=== PATIENT | female | born 1950 | race Caucasian/White ===

== ENCOUNTER 2017-12-24 21:27 | Emergency (ER) | payer MEDICARE, OTHER ==
[2017-12-24 21:42] VITALS: BP 152/75; PULSE 66; O2SAT 98
[2017-12-24] MEDS ORDERED: TORAdol 30 mg Injection IM ONE (21:49)
--- NOTE | 2017-12-24 21:51 | ERPHSYRPT ---
- History of Present Illness Time Seen by Provider: 12/24/17 21:49 Source: patient Exam Limitations: no limitations Patient Subjective Stated Complaint: FAll, Right ankle Pain. Triage Nursing Assessment: Pt presents to the ED with complaints of right ankle pain after she fell. Pt states she stepped off a brick ledge. Swelling noted to lateral portion of right ankle, abrasion noted to left foot and bridge of nose. No distress noted, skin pwd. Physician History: FAll, Right ankle Pain.just before arrival Pt presents to the ED with complaints of right ankle pain after she fell. Pt states she stepped off a brick ledge. Swelling noted to lateral portion of right ankle, abrasion noted to left foot and bridge of nose. Method of Injury: fell Occurred: just prior to arrival Quality: throbbing Severity of Pain-Max: moderate Severity of Pain-Current: moderate Lower Extremities Pain: ankle: right Modifying Factors: Improves With: nothing Associated Symptoms: unable to bear weight Allergies/Adverse Reactions: codeine Allergy (Unknown, Verified 12/24/17 21:43) Penicillins Allergy (Unknown, Verified 12/24/17 21:43) Home Medications: Lorazepam 0.5 mg [Ativan 0.5 MG] 0.5 mg PO Q6HPRN PRN 12/24/17 [History] Sertraline HCl [Sertraline HCl] 50 mg PO DAILY 12/24/17 [History] Hx Tetanus, Diphtheria Vaccination/Date Given: No Hx Influenza Vaccination/Date Given: No Hx Pneumococcal Vaccination/Date Given: Yes Immunizations Up to Date: No - Review of Systems Constitutional: No Symptoms Eyes: No Symptoms Ears, Nose, & Throat: No Symptoms Respiratory: No Symptoms Cardiac: No Symptoms Abdominal/Gastrointestinal: No Symptoms Genitourinary Symptoms: No Symptoms Musculoskeletal: Deformity (right ankle), Joint Pain, Joint Swelling - Past Medical History Neurological History: No Pertinent History Cardiac History: No Pertinent History Respiratory History: No Pertinent History Endocrine Medical History: No Pertinent History Musculoskeletal History: Osteoarthritis Other Medical History: Breast CA - 2 lumpectomies left with radiation - completed treatment 2012. Still taking Exemestane - Social History Smoking Status: Never smoker Exposure to second hand smoke: No Patient Lives Alone: No - Female History Hx Now: No - Nursing Vital Signs Nursing Vital Signs: Initial Vital Signs Temperature 98.3 F 12/24/17 21:36 Pulse Rate 66 12/24/17 21:36 Respiratory Rate 16 12/24/17 21:36 Blood Pressure 152/75 12/24/17 21:36 O2 Sat by Pulse Oximetry 98 12/24/17 21:36 Pain Scale Pain Intensity 8 - Physical Exam General Appearance: no apparent distress Ankle Exam: right ankle: limited range of motion, soft tissue tenderness, swelling SpO2: 98 Oxygen Delivery: Room Air - Course Nursing assessment & vital signs reviewed: Yes - Radiology Exams Ankle X-ray Interpretation: Reviewed by me, No Fracture, No Subluxation Ordered Tests: Active Orders 24 hr Category Date Time Status ANKLE (3 VIEWS) Stat Exams 12/24/17 Ordered Medication Summary Discontinued Medications Generic Name Dose Route Start Last Admin Trade Name Juan PRN Reason Stop Dose Admin Ketorolac Tromethamine 60 mg 12/24/17 21:49 12/24/17 22:09 Toradol 30 Mg Injection IM 12/24/17 21:50 60 mg STAT ONE Administration Ketorolac Tromethamine Confirm 12/24/17 22:08 Toradol 30 Mg Injection Administered 12/24/17 22:09 Dose 60 mg .ROUTE .STK-MED ONE - Progress Progress: unchanged, pain not gone completely Counseled pt/family regarding: diagnosis, rad results - Departure Time of Disposition: 22:09 Departure Disposition: Home Clinical Impression: High ankle sprain of right lower extremity Qualifiers: Encounter type: initial encounter Qualified Code(s): S93.431A - Sprain of tibiofibular ligament of right ankle, initial encounter Condition: Stable Critical Care Time: No Referrals: ISSAC EVERETT MD [Primary Care Provider] - Instructions: Ankle Sprain, Ankle Sprain (DC) Additional Instructions: SPRAINS/STRAINS/CONTUSIONS 1. Rest the affected area as much as possible for the next few days. 2. Apply ice to the affected area for 20-30 minutes at a time, several times a day. 3. If you receive an elastic wrap, wear it only while awake for comfort and support. Re-wrap the elastic wrap if it feels too tight or too loose. 4. If swelling is present, elevate the affected part above the level of the heart for at least 2 to 3 days. 5. Use splints, slings, or crutches as instructed. 6. Watch for severe swelling, coldness, numbness, and discoloration of the fingers and toes. See your family physician or return to the emergency department if any of these are noted. ABDULAZIZ GRECO was seen on 12/24/17 n the Emergency Room. At that time you were treated for an emergent condition, during your visit Laboratory, Radiology and/or other procedures may have been ordered. It is very important that you follow-up with your Primary Care Physician ISSAC EVERETT within the next 24- 48 hours to review your Emergency Room visit and the final results of testing that was ordered. Some test results such as Urine Cultures, Blood Cultures, and other cultures if ordered will not be finalized for 24-48 hours. If you do not have a Primary Care Provider please call the medical records department at [phone] to obtain a copy of your results or you may sign into our patient portal to obtain these results by visiting us @ [email or web address] and completing the following steps: 1. Click on the Patient Portal link 2. Click the Patient Self Enrollment Link to complete the enrollment form and entering your 3. Once the enrollment form is completed you will receive an email with a temporary ID and password at the email address you provided. 4. Next choose a user name and password. Your user name must be at least 4 characters long and your password must be at least 4 characters long. 5. Choose a security question from the list and provide your answer to the question. If you already have signed into the Health Portal you may access your Health Care Information 19/04 by the following steps: 1. Login to our website @ [email or web address] 2. Enter your original user name and password. FAQS The [facility] Health Portal is an online tool that contains your Lab Results, Radiology Reports, Visit History, Discharge Instructions and Health Summary Lab and Radiology Results will not be available for 72 hours on the portal. The Portal is a secure site, passwords are encryted and URLs are re-written so they cannot be copied and pasted. You and authorized family members are the only ones who can access your Portal. Also there is a timeout feature that protects your information if you leave the Portal page open. If you have technical difficulty please use the Contact Us link on the page this will allow you to submit any questions you have regarding the Portal or you may contact the Medical Record Department at [phone]. Prescriptions: Naproxen 375 mg [Naprosyn 375 mg] 375 mg PO Q8H #30 tablet
[2017-12-24] MEDS ORDERED: TORAdol 30 mg Injection ONE (22:08)
--- NOTE | 2017-12-25 10:17 | XRAY ---
Indication: Pain following fall. Comparison: None 3 views of the right ankle demonstrates intact ankle mortise with minimally displaced acute fracture involving the tip of the lateral malleolus with soft tissue swelling. Elsewhere small plantar heel spur. Comment: Fracture not reported. Telephone report given to Dr. Barfield in the ER at 1012 hrs. on December 25, 2017.
== END 2017-12-24 22:27 | disposition home or self-care (01) ==
LOC: ED 21:27
DX: S93.431A Sprain of tibiofibular ligament of right ankle, initial encounter (principal); M25.471 Effusion, right ankle; S90.812A Abrasion, left foot, initial encounter; S00.31XA Abrasion of nose, initial encounter; W17.89XA Other fall from one level to another, initial encounter; M19.90 Unspecified osteoarthritis, unspecified site; C80.1 Malignant (primary) neoplasm, unspecified
CPT/HCPCS: 73610; 96372; 99284; J1885; L4386

== ENCOUNTER 2018-03-09 11:57 | Observation (INO) | payer MEDICARE, OTHER ==
[2018-03-09 12:55] LABS: Hematocrit 45.1 % (35-47); Hemoglobin 14.7 gm/dl (12.0-16.0); Mean Cell Volume 94.9 fl (78-100); Mean Corpuscular Hemoglobin 30.9 pg (26-32); Mean Corpuscular Hgb Concent. 32.6 g/dl (32-36); Platelet Count 163 K/mm3 (150-450); Red Blood Count 4.75 M/mm3 (4.1-5.4); Red Cell Distribution Width 14.4 % (11.5-14.0); White Blood Count 6.5 K/mm3 (4.0-10.5)
[2018-03-09 13:10] LABS: ALBUMIN 4.2 g/dL (3.5-5.0); ALKALINE PHOSPHATASE 63 U/L (38-126); ANION GAP 13.5 MEQ/L (5-15); BLOOD UREA NITROGEN 16 mg/dL (7-17); CHLORIDE 103 mmol/L (98-107); Calcium 9.7 mg/dL (8.4-10.2); Carbon Dioxide 32 mmol/L (22-30); Creatinine 1 0.94 mg/dL (0.52-1.04); Glucose 93 mg/dL (74-106); Potassium 4.3 mmol/L (3.5-5.1); SGOT/AST 25 U/L (14-36); SGPT/ALT 25 U/L (0-35); SODIUM 144 mmol/L (137-145); Total Protein 7.1 g/dL (6.3-8.2)
[2018-03-09] MEDS: FLAGYL 500 MG IVPB 500 MG/100 ML BAG IV SCH ×2 (13:49→21:31)
[2018-03-09] MEDS: Sodium Chloride 0.9% 1000 ML 1,000 ML IV SCH (13:49)
[2018-03-09] MEDS: Ativan 0.5 MG PO PRN (14:00)
[2018-03-09] MEDS: Zofran 4 MG/2 ML VIAL IV PRN (14:00)
[2018-03-09 14:30] LABS: Appearance CLEAR (CLEAR); Bilirubin NEGATIVE (NEGATIVE); Blood NEGATIVE Ery/ul (0-5); Glucose NEGATIVE (NEGATIVE); Ketones NEGATIVE (NEGATIVE); Leukocyte Esterase NEGATIVE (NEGATIVE); Nitrite NEGATIVE (NEGATIVE); Protein,Urine Dip NEGATIVE (Negative); Specific Gravity 1.005 (1.005-1.025); Urobilinogen NORMAL mg/dL (0-1)
[2018-03-09] MEDS ORDERED: Ativan 2 MG/1 ML VIAL IV PRN (15:08)
--- NOTE | 2018-03-09 16:38 | XRAY ---
Indication: Left pelvic pain. Nausea and vomiting. History diverticulitis. Multiple contiguous axial images obtained through the abdomen and pelvis prior to and following 80 cc Isovue 370 contrast. Oral contrast also used. Comparison: Noncontrast exam August 26, 2017. Lung bases remain clear. Heart is not enlarged. Stable small hiatal hernia. Noncontrasted images again demonstrates scattered calcified splenic granulomas and stable nonobstructing renal micro-calculus in each kidney. No new pathologic visceral calcification/calculi. Contrasted stomach and bowel loops appear nonobstructed. Normal appendix. Stable mild descending/sigmoid colonic diverticulosis without diverticulitis. No free fluid/air. Postcontrast images demonstrates normal vessel enhancement and renal excretion. Stable hepatic cysts and bilateral renal cysts. Remaining liver, gallbladder, pancreas, spleen, adrenal glands, kidneys, ureters, bladder, uterus, and aorta appear unremarkable. No pathologic retroperitoneal lymphadenopathy. Osseous structures intact again with lumbar degenerative changes and mild dextroscoliosis. No ventral or inguinal hernias. Impression: 1. Stable nonobstructing bilateral renal micro-calculi, small hiatal hernia, hepatic/renal cysts, and colonic diverticulosis. 2. Remaining CT abdomen/pelvis with and without contrast exam is negative. CTDI 19.26
[2018-03-10] MEDS: Sodium Chloride 0.9% 1000 ML 1,000 ML IV SCH (05:19)
[2018-03-10] MEDS: FLAGYL 500 MG IVPB 500 MG/100 ML BAG IV SCH (05:19)
[2018-03-10] MEDS: Ativan 0.5 MG PO PRN (05:20)
[2018-03-10] MEDS: Zofran 4 MG/2 ML VIAL IV PRN (09:01)
[2018-03-10] MEDS ORDERED: TYLENOL EXTRA STRENGTH 500 MG PO PRN (09:08)
[2018-03-10 12:19] VITALS: BP 130/77; PULSE 61; O2SAT 97
--- NOTE | 2018-03-10 12:19 | PCM.HP.ADD ---
Addendum to History & Physical - History & Physical Addendum Addendum to History & Physical: This certifies that the History & Physical in the electronic chart reflects the current health status of the patient. If there are changes in the H&P these changes/exceptions are listed as follows.
--- NOTE | 2018-03-10 12:21 | PCM.DS ---
Discharge Summary Date of Admission: 03/09/18 12:12 Admitting Physician: ISSAC EVERETT Primary Care Provider: ISSAC EVERETT Allergies Allergies codeine Allergy (Unknown, Verified 12/24/17 21:43) Penicillins Allergy (Unknown, Verified 12/24/17 21:43) Hospital Summary - Hospital Course Hospital Course: Last Vital Signs Temp 97.5 F 03/10/18 12:00 Pulse 61 03/10/18 12:00 Resp 18 03/10/18 12:00 BP 130/77 03/10/18 12:00 Pulse Ox 97 03/10/18 12:00 Allergies codeine Allergy (Unknown, Verified 12/24/17 21:43) Penicillins Allergy (Unknown, Verified 12/24/17 21:43) Active Medications Acetaminophen (Tylenol Extra Strength 500 Mg) 1,000 mg PO Q4H PRN PRN PRN Reason: HEADACHE Stop: 04/09/18 09:07 Last Admin: 03/10/18 09:38 Dose: 1,000 mg Sodium Chloride (Sodium Chloride 0.9% 1000 Ml) 1,000 mls @ 75 mls/hr IV .[id number] LOLA Stop: 04/08/18 13:29 Last Admin: 03/10/18 05:19 Dose: 75 mls/hr Metronidazole (Flagyl 500 Mg Ivpb) 500 mg in 100 mls @ 200 mls/hr IV Q8HT LOLA Stop: 04/08/18 13:59 Last Admin: 03/10/18 05:19 Dose: 200 mls/hr Lorazepam (Ativan 0.5 Mg) 0.5 mg PO Q6HPRN PRN PRN Reason: ANXIETY Stop: 04/08/18 13:50 Last Admin: 03/10/18 05:20 Dose: 0.5 mg Lorazepam (Ativan 2 Mg/1 Ml Vial) 1 mg IV Q4H PRN PRN PRN Reason: ANXIETY/AGITATION Stop: 04/08/18 15:07 Last Admin: 03/09/18 15:22 Dose: 1 mg Ondansetron HCl (Zofran 4 Mg/2 Ml Vial) 4 mg IV Q6H PRN PRN Stop: 04/08/18 13:17 Last Admin: 03/10/18 09:01 Dose: 4 mg Intake & Output 03/10/18 03/11/18 11:59 11:59 Intake Total 712 Output Total 175 Balance 537 Weight 78 kg Orders 03/09/18 12:12 Place in Observation ROUTINE 03/09/18 13:18 Ondansetron HCl 4 mg/2 ml [Zofran 4 MG/2 ML VIAL] 4 mg IV Q6H PRN PRN 03/09/18 13:30 NaCl 0.9% 1000 ml [Sodium Chloride 0.9% 1000 ML] 1,000 ml IV 75 mls/hr 03/09/18 13:42 Nutritional Admission Screen once 03/09/18 13:51 Lorazepam 0.5 mg [Ativan 0.5 MG] 0.5 mg PO Q6HPRN PRN 03/09/18 14:00 Metronidazole 500 mg Premix [Flagyl 500 mg Ivpb] 500 mg in 100 ml IV Q8HT 03/09/18 15:08 Lorazepam 2 mg/1 ml [Ativan 2 MG/1 ML VIAL] 1 mg IV Q4H PRN PRN 03/09/18 Dinner Clear Liquid 03/10/18 09:08 Acetaminophen 500 mg [Tylenol Extra Strength 500 mg] 1,000 mg PO Q4H PRN PRN Lab Tests 03/09/18 03/09/18 03/09/18 12:52 12:52 14:15 WBC 6.5 RBC 4.75 Hgb 14.7 Hct 45.1 MCV 94.9 MCH 30.9 MCHC 32.6 RDW 14.4 H Plt Count 163 MPV 11.0 H Sodium 144 Potassium 4.3 Chloride 103 Carbon Dioxide 32 H Anion Gap 13.5 BUN 16 Creatinine 0.94 Estimated GFR > 60.0 Glucose 93 Calcium 9.7 Total Bilirubin 0.50 AST 25 ALT 25 Alkaline Phosphatase 63 Serum Total Protein 7.1 Albumin 4.2 Ur Collection Type VOID Urine Color YELLOW Urine Appearance CLEAR Urine pH 8.0 Ur Specific [place] 1.005 Urine Protein NEGATIVE Urine Ketones NEGATIVE Urine Blood NEGATIVE Urine Nitrite NEGATIVE Urine Bilirubin NEGATIVE Urine Urobilinogen NORMAL Ur Leukocyte Esterase NEGATIVE Urine Glucose NEGATIVE Specimen Received 03/09/18 1415 - Vitals & Intake/Output Vital Signs: Vital Signs Temperature 97.5 F 03/10/18 12:00 Pulse Rate 61 03/10/18 12:00 Respiratory Rate 18 03/10/18 12:00 Blood Pressure 130/77 03/10/18 12:00 O2 Sat by Pulse Oximetry 97 03/10/18 12:00 Intake & Output: Intake & Output 03/08/18 03/09/18 03/10/18 03/11/18 11:59 11:59 11:59 11:59 Intake Total 712 Output Total 175 Balance 537 Weight 78 kg - Lab Result Diagrams: 03/09/18 12:52 03/09/18 12:52 Lab Results-Last 24 Hrs: Lab Results-Last 24 Hours 03/09/18 03/09/18 03/09/18 Range/Units 12:52 12:52 14:15 WBC 6.5 (4.0-10.5) K/mm3 RBC 4.75 (4.1-5.4) M/mm3 Hgb 14.7 (12.0-16.0) gm/dl Hct 45.1 (35-47) % MCV 94.9 (78-100) fl MCH 30.9 (26-32) pg MCHC 32.6 (32-36) g/dl RDW 14.4 H (11.5-14.0) % Plt Count 163 (150-450) K/mm3 MPV 11.0 H (6-9.5) fl Sodium 144 (137-145) mmol/L Potassium 4.3 (3.5-5.1) mmol/L Chloride 103 (98-107) mmol/L Carbon Dioxide 32 H (22-30) mmol/L Anion Gap 13.5 (5-15) MEQ/L BUN 16 (7-17) mg/dL Creatinine 0.94 (0.52-1.04) mg/dL Estimated GFR > 60.0 ML/MIN Glucose 93 (74-106) mg/dL Calcium 9.7 (8.4-10.2) mg/dL Total Bilirubin 0.50 (0.2-1.3) mg/dL AST 25 (14-36) U/L ALT 25 (0-35) U/L Alkaline Phosphatase 63 (38-126) U/L Serum Total Protein 7.1 (6.3-8.2) g/dL Albumin 4.2 (3.5-5.0) g/dL Ur Collection Type VOID Urine Color YELLOW (YELLOW) Urine Appearance CLEAR (CLEAR) Urine pH 8.0 (5-6) Ur Specific [place] 1.005 (1.005-1.025) Urine Protein NEGATIVE (Negative) Urine Ketones NEGATIVE (NEGATIVE) Urine Blood NEGATIVE (0-5) Migue/ul Urine Nitrite NEGATIVE (NEGATIVE) Urine Bilirubin NEGATIVE (NEGATIVE) Urine Urobilinogen NORMAL (0-1) mg/dL Ur Leukocyte Esterase NEGATIVE (NEGATIVE) Urine Glucose NEGATIVE (NEGATIVE) mg/dL Specimen Received 03/09/18 1415 - Radiology Exams Ordered Rad Exams-Entire Visit: Radiology Procedures Category Date Time Status ABDOMEN AND PELVIS W&WO CONTRA [CT] Routine Exams 03/09/18 15:00 Completed Discharge Exam General Appearance: no apparent distress, alert Neurologic Exam: alert, oriented x 3, cooperative, normal mood/affect, nml cerebellar function, sensation nml, No motor deficits Skin Exam: normal color, warm, dry Eye Exam: PERRL, EOMI, eyes nml inspection Ears, Nose, Throat Exam: normal ENT inspection, pharynx normal, moist mucous membranes Neck Exam: normal inspection, non-tender, supple, full range of motion Respiratory Exam: normal breath sounds, lungs clear, No respiratory distress Cardiovascular Exam: regular rate/rhythm, normal heart sounds Gastrointestinal/Abdomen Exam: soft, No tenderness, No mass Extremity Exam: normal inspection, normal range of motion Back Exam: normal inspection, normal range of motion, No CVA tenderness, No vertebral tenderness Pelvic Exam: deferred Rectal Exam: deferred Final Diagnosis/Problem List - Final Discharge Diagnosis/Problem (1) Abdominal pain, acute, left lower quadrant Current Visit: Yes Status: Acute Assessment & Plan: Chief Complaint Diagnosis Diverticulitis Allergies Allergy/AdvReac Type Severity Reaction Status Date / Time codeine Allergy Unknown Verified 12/24/17 21:43 Penicillins Allergy Unknown Verified 12/24/17 21:43 Vital Signs (Last 24 hours) Temp Pulse Resp BP BP Pulse Ox 03/10/18 12:00 97.5 F 61 18 130/77 97 03/10/18 08:00 97.9 F 68 18 117/59 95 03/10/18 04:00 97.8 F 60 16 117/57 91 L 03/10/18 00:00 97.9 F 66 14 109/61 94 L 03/09/18 20:00 98 F 70 20 110/56 98 03/09/18 16:00 97.8 F 65 16 113/57 94 L 03/09/18 13:23 97.9 F 76 17 132/64 132/64 96 Current Medications Generic Name Dose Route Start Last Admin Trade Name Freq PRN Reason Stop Dose Admin Acetaminophen 1,000 mg 03/10/18 09:08 03/10/18 09:38 Tylenol Extra Strength 500 Mg PO 04/09/18 09:07 1,000 mg Q4H PRN PRN Administration HEADACHE Sodium Chloride 1,000 mls @ 75 mls/hr 03/09/18 13:30 03/10/18 05:19 Sodium Chloride 0.9% 1000 Ml IV 04/08/18 13:29 75 mls/hr .[id number] LOLA Administration Metronidazole 500 mg in 100 mls @ 200 mls/hr 03/09/18 14:00 03/10/18 05:19 Flagyl 500 Mg Ivpb IV 04/08/18 13:59 200 mls/hr Q8HT LOLA Administration Lorazepam 0.5 mg 03/09/18 13:51 03/10/18 05:20 Ativan 0.5 Mg PO 04/08/18 13:50 0.5 mg Q6HPRN PRN Administration ANXIETY Lorazepam 1 mg 03/09/18 15:08 03/09/18 15:22 Ativan 2 Mg/1 Ml Vial IV 04/08/18 15:07 1 mg Q4H PRN PRN Administration ANXIETY/AGITATION Ondansetron HCl 4 mg 03/09/18 13:18 03/10/18 09:01 Zofran 4 Mg/2 Ml Vial IV 04/08/18 13:17 4 mg Q6H PRN PRN Administration Intake & Output (Last 24 hours) 03/08/18 03/09/18 03/10/18 03/11/18 11:59 11:59 11:59 11:59 Intake Total 712 Output Total 175 Balance 537 Weight 78 kg Laboratory Results (Last 24 hours) 03/09/18 03/09/18 03/09/18 14:15 12:52 12:52 WBC 6.5 RBC 4.75 Hgb 14.7 Hct 45.1 MCV 94.9 MCH 30.9 MCHC 32.6 RDW 14.4 H Plt Count 163 MPV 11.0 H Sodium 144 Potassium 4.3 Chloride 103 Carbon Dioxide 32 H Anion Gap 13.5 BUN 16 Creatinine 0.94 Estimated GFR > 60.0 Glucose 93 Calcium 9.7 Total Bilirubin 0.50 AST 25 ALT 25 Alkaline Phosphatase 63 Serum Total Protein 7.1 Albumin 4.2 Ur Collection Type VOID Urine Color YELLOW Urine Appearance CLEAR Urine pH 8.0 Ur Specific [place] 1.005 Urine Protein NEGATIVE Urine Ketones NEGATIVE Urine Blood NEGATIVE Urine Nitrite NEGATIVE Urine Bilirubin NEGATIVE Urine Urobilinogen NORMAL Ur Leukocyte Esterase NEGATIVE Urine Glucose NEGATIVE Specimen Received 03/09/18 1415 Orders (Last 24 hours) Category Date Time Status Place in Observation ROUTINE Care 03/09/18 12:12 Active Clear Liquid Diet 03/09/18 Dinner Active NPO Diet 03/09/18 12:36 Completed Nutritional Admission Screen once Diet 03/09/18 13:42 Active ABDOMEN AND PELVIS W&WO CONTRA [CT] Routine Exams 03/09/18 15:00 Completed CBC Urgent Lab 03/09/18 12:52 Completed CMP Urgent Lab 03/09/18 12:52 Completed UA Urgent Lab 03/09/18 14:15 Completed Acetaminophen 500 mg [Tylenol Extra Strength 500 mg* Med 03/10/18 09:08 Active ] 1,000 mg PO Q4H PRN PRN Lorazepam 0.5 mg [Ativan 0.5 MG] Med 03/09/18 13:51 Active 0.5 mg PO Q6HPRN PRN Lorazepam 2 mg/1 ml [Ativan 2 MG/1 ML VIAL] Med 03/09/18 15:08 Active 1 mg IV Q4H PRN PRN Metronidazole 500 mg Premix [Flagyl 500 mg Ivpb] Med 03/09/18 14:00 Active 500 mg in 100 ml IV Q8HT NaCl 0.9% 1000 ml [Sodium Chloride 0.9% 1000 ML] 1,000 Med 03/09/18 13:30 Active ml IV 75 mls/hr Ondansetron HCl 4 mg/2 ml [Zofran 4 MG/2 ML VIAL] Med 03/09/18 13:18 Active 4 mg IV Q6H PRN PRN Patient Care Notes (Last 24 hours) 03/10/18 09:30 (created 03/10/18 10:32) Nursing Note by Jayleen Martin No further c/o nausea at this time. Initialized on 03/10/18 10:32 - END OF NOTE 03/09/18 16:00 Nursing Note by Jayleen Martin Pt returned form radiology;tesst completed. Pt calm and able to smile when spoken to. Initialized on 03/09/18 16:00 - END OF NOTE 03/09/18 15:54 Nursing Note by Jayleen Martin Pt in radiology obtaining ordered CT. Pt's spouse went with her. Initialized on 03/09/18 15:54 - END OF NOTE 03/09/18 15:09 Nursing Note by Jayleen Martin Called Dr Everett concerning pt's high anxiety regarding her CT scan. pt went down for CT to radiology and refused to have it done. Addendum entered by Jayleen Martin 03/09/18 15:10: New order received. Initialized on 03/09/18 15:09 - END OF NOTE 03/09/18 14:40 Nursing Note by Jayleen Martin Pt continue to be tearful. Unable to complete recommended amount of oral contrast d/t nausea. Pt keeps stating "the only thing I can keep down are the large pretzels'. Addendum entered by Jayleen Martin 03/09/18 14:42: Called the radiology department to let them know she is unable to finish the oral contrast. Initialized on 03/09/18 14:40 - END OF NOTE 03/09/18 13:15 Nursing Note by Jayleen Martin Called Dr Everett concerning pt's home med list; new order received. Initialized on 03/09/18 13:15 - END OF NOTE (2) Hx of breast cancer Current Visit: Yes Status: Chronic - Discharge Discharge Date: 03/10/18 Disposition: Home, Self-Care Condition: Stable Prescriptions: Continue Lorazepam 0.5 mg [Ativan 0.5 MG] 0.5 mg PO Q6HPRN PRN PRN Reason: Anxiety Follow up with: ISSAC EVERETT MD [Primary Care Provider] - 1 Week
== END 2018-03-10 13:10 | disposition home or self-care (01) ==
LOC: MED SURG 12:12
PROVIDERS: ADMIT General Practice; ATTEND General Practice
DX: R10.32 Left lower quadrant pain (principal); K57.92 Diverticulitis of intestine, part unspecified, without perforation or abscess without bleeding; Z85.3 Personal history of malignant neoplasm of breast
CPT/HCPCS: 36415; 74178; 80053; 81002; 85027; G0378; J2060; J2405; A9270-GY

== ENCOUNTER 2018-05-16 15:46 | Observation (INO) | payer MEDICARE, OTHER ==
[2018-05-16] MEDS ORDERED: Sodium Chloride 0.9% 1000 ML 1,000 ML IV STA (17:12)
[2018-05-16] MEDS: Zofran 4 MG/2 ML VIAL IV PRN (17:27)
[2018-05-16] MEDS: Sodium Chloride 0.9% 1000 ML 1,000 ML IV SCH (17:27)
[2018-05-16 19:17] LABS: Hematocrit 41.2 % (35-47); Hemoglobin 13.5 gm/dl (12.0-16.0); Mean Cell Volume 93.4 fl (78-100); Mean Corpuscular Hemoglobin 30.6 pg (26-32); Mean Corpuscular Hgb Concent. 32.8 g/dl (32-36); Mean Platelet Volume 11.1 fl (6-9.5); Platelet Count 155 K/mm3 (150-450); Red Blood Count 4.41 M/mm3 (4.1-5.4); Red Cell Distribution Width 14.5 % (11.5-14.0); White Blood Count 7.3 K/mm3 (4.0-10.5)
[2018-05-16 19:20] LABS: Appearance CLEAR (CLEAR)
[2018-05-16 19:22] LABS: Bilirubin NEGATIVE (NEGATIVE); Blood NEGATIVE Ery/ul (0-5); Glucose NEGATIVE (NEGATIVE); Ketones SMALL (NEGATIVE); Leukocyte Esterase 1+ (NEGATIVE); Nitrite NEGATIVE (NEGATIVE); Protein,Urine Dip NEGATIVE (Negative); Specific Gravity 1.005 (1.005-1.025); Urobilinogen NORMAL mg/dL (0-1)
[2018-05-16 19:37] LABS: WBC 0-2 /HPF (0-5)
[2018-05-16 19:38] LABS: Bacteria RARE /HPF (NEGATIVE); Epithelial Cells FEW /HPF (FEW)
[2018-05-16 20:10] LABS: ALBUMIN 3.8 g/dL (3.5-5.0); ALKALINE PHOSPHATASE 70 U/L (38-126); ANION GAP 11.5 MEQ/L (5-15); BLOOD UREA NITROGEN 16 mg/dL (7-17); CHLORIDE 108 mmol/L (98-107); Calcium 8.7 mg/dL (8.4-10.2); Carbon Dioxide 25 mmol/L (22-30); Creatinine 1 0.77 mg/dL (0.52-1.04); Glucose 88 mg/dL (74-106); Potassium 3.6 mmol/L (3.5-5.1); SGOT/AST 22 U/L (14-36); SGPT/ALT 21 U/L (0-35); SODIUM 141 mmol/L (137-145); Total Protein 6.4 g/dL (6.3-8.2)
[2018-05-17] MEDS ORDERED: TYLENOL 325 MG PO PRN (00:21)
[2018-05-17] MEDS: Sodium Chloride 0.9% 1000 ML 1,000 ML IV SCH (04:32)
[2018-05-17] MEDS: Zofran 4 MG/2 ML VIAL IV PRN (07:29)
[2018-05-17 11:40] VITALS: BP 109/53; PULSE 50; O2SAT 96
--- NOTE | 2018-05-17 11:46 | PCM.SSS ---
History of Present Illness - Chief Complaint Chief Complaint: nausea and vomiting for 2 days History of Present Illness: is a 68 year old female.came with c/o nausea and vomiting for 2 days - Review of Systems Constitutional: No Fever, No Chills Eyes: No Symptoms Ears, Nose, & Throat: No Symptoms Respiratory: No Cough, No Short Of Breath Cardiac: No Chest Pain, No Edema, No Syncope Abdominal/Gastrointestinal: Nausea, Vomiting, No Abdominal Pain, No Diarrhea Genitourinary Symptoms: No Dysuria Musculoskeletal: No Back Pain, No Neck Pain Skin: No Rash Neurological: No Dizziness, No Focal Weakness, No Sensory Changes Psychological: No Symptoms Endocrine: No Symptoms Hematologic/Lymphatic: No Symptoms Immunological/Allergic: No Symptoms Medications & Allergies Home Medications: Home Medication List No Reportable Medications [No Reported Medications] 05/16/18 [History Confirmed 05/16/18] Allergies/Adverse Reactions: Allergies Allergy/AdvReac Type Severity Reaction Status Date / Time codeine Allergy Unknown Verified 12/24/17 21:43 Penicillins Allergy Unknown Verified 12/24/17 21:43 - Past Medical History Neurological History: No Pertinent History ENT History: No Pertinent History Cardiac History: No Pertinent History Respiratory History: No Pertinent History Endocrine Medical History: No Pertinent History Musculoskelatal History: Fractures GI Medical History: Cirrhosis, Diverticulitis, Polyps History: No Pertinent History Pyscho-Social History: No Pertinent History Reproductive Disorders: Breast Cancer Comment: 01/24/18 Colonoscopy and they removed 6 polyps. Left foot fx this spring (2017) - Female History Are you now?: No - Past Surgical History Past Surgical History: Yes Neuro Surgical History: No Pertinent History Cardiac History: No Pertinent History Respiratory Surgery: No Pertinent History GI Surgical History: Hemorrhoidectomy Genitourinary Surgical Hx: No Pertinent History Musculskeletal Surgical Hx: No Pertinent History Female Surgical History: Lumpectomy - Social History Smoking Status: Never smoker Exposure to second hand smoke: No Alcohol: None Drug Use: none - Physical Exam Vital Signs: Vital Signs - 24 hr Temp Pulse Resp BP Pulse Ox 05/17/18 11:39 98.2 F 50 L 18 109/53 96 05/17/18 07:36 18 05/17/18 07:26 97.9 F 53 L 18 99/53 93 L 05/17/18 04:00 97.9 F 60 18 102/51 92 L 05/17/18 00:00 98.3 F 62 18 102/56 95 05/16/18 20:00 98.4 F 54 L 16 121/58 95 05/16/18 16:37 98.1 F 81 18 129/64 98 General Appearance: no apparent distress, alert Neurologic Exam: alert, oriented x 3, cooperative, normal mood/affect, nml cerebellar function, nml station & gait, sensation nml, No motor deficits Eye Exam: PERRL/EOMI, eyes nml inspection Ears, Nose, Throat Exam: normal ENT inspection, TMs normal, pharynx normal, moist mucous membranes Neck Exam: normal inspection, non-tender, supple, full range of motion Respiratory Exam: normal breath sounds, lungs clear, No respiratory distress Cardiovascular Exam: regular rate/rhythm, normal heart sounds, normal peripheral pulses Gastrointestinal/Abdomen Exam: soft, normal bowel sounds, No tenderness, No mass Back Exam: normal inspection, normal range of motion, No CVA tenderness, No vertebral tenderness Extremity Exam: normal inspection, normal range of motion, pelvis stable Skin Exam: normal color, warm, dry, No rash Lymphatic Exam: No adenopathy Results - Labs Lab/Micro Results: Lab Results-Last 24 Hours 05/16/18 05/16/18 05/16/18 Range/Units 19:00 19:11 19:11 WBC 7.3 (4.0-10.5) K/mm3 RBC 4.41 (4.1-5.4) M/mm3 Hgb 13.5 (12.0-16.0) gm/dl Hct 41.2 (35-47) % MCV 93.4 (78-100) fl MCH 30.6 (26-32) pg MCHC 32.8 (32-36) g/dl RDW 14.5 H (11.5-14.0) % Plt Count 155 (150-450) K/mm3 MPV 11.1 H (6-9.5) fl Sodium 141 (137-145) mmol/L Potassium 3.6 (3.5-5.1) mmol/L Chloride 108 H (98-107) mmol/L Carbon Dioxide 25 (22-30) mmol/L Anion Gap 11.5 (5-15) MEQ/L BUN 16 (7-17) mg/dL Creatinine 0.77 (0.52-1.04) mg/dL Estimated GFR > 60.0 ML/MIN Glucose 88 (74-106) mg/dL Calcium 8.7 (8.4-10.2) mg/dL Total Bilirubin 0.70 (0.2-1.3) mg/dL AST 22 (14-36) U/L ALT 21 (0-35) U/L Alkaline Phosphatase 70 (38-126) U/L Serum Total Protein 6.4 (6.3-8.2) g/dL Albumin 3.8 (3.5-5.0) g/dL Ur Collection Type CLEAN CATCH Urine Color YELLOW (YELLOW) Urine Appearance CLEAR (CLEAR) Urine pH 8.0 (5-6) Ur Specific [place] 1.005 (1.005-1.025) Urine Protein NEGATIVE (Negative) Urine Ketones SMALL (NEGATIVE) Urine Blood NEGATIVE (0-5) Migue/ul Urine Nitrite NEGATIVE (NEGATIVE) Urine Bilirubin NEGATIVE (NEGATIVE) Urine Urobilinogen NORMAL (0-1) mg/dL Ur Leukocyte Esterase 1+ (NEGATIVE) Urine Microscopic WBC 0-2 (0-5) /HPF Ur Epithelial Cells FEW (FEW) /HPF Urine Bacteria RARE (NEGATIVE) /HPF Urine Glucose NEGATIVE (NEGATIVE) mg/dL Specimen Received 05/16/18 1900 Assessment/Plan (1) Dehydration, moderate Current Visit: Yes Status: Acute Assessment & Plan: Chief Complaint Diagnosis N/V, dehydration Allergies Allergy/AdvReac Type Severity Reaction Status Date / Time codeine Allergy Unknown Verified 12/24/17 21:43 Penicillins Allergy Unknown Verified 12/24/17 21:43 Vital Signs (Last 24 hours) Temp Pulse Resp BP Pulse Ox 05/17/18 11:39 98.2 F 50 L 18 109/53 96 05/17/18 07:36 18 05/17/18 07:26 97.9 F 53 L 18 99/53 93 L 05/17/18 04:00 97.9 F 60 18 102/51 92 L 05/17/18 00:00 98.3 F 62 18 102/56 95 05/16/18 20:00 98.4 F 54 L 16 121/58 95 05/16/18 16:37 98.1 F 81 18 129/64 98 Home Medications Medication Instructions Recorded Confirmed Last Taken Type No Reportable Medications [No 05/16/18 05/16/18 Unknown History Reported Medications] Current Medications Generic Name Dose Route Start Last Admin Trade Name Juan PRN Reason Stop Dose Admin Acetaminophen 650 mg 05/17/18 00:21 05/17/18 00:25 Tylenol 325 Mg PO 06/16/18 00:20 650 mg Q4H PRN PRN Administration PAIN AND/OR FEVER Sodium Chloride 1,000 mls @ 100 mls/hr 05/16/18 17:30 05/17/18 04:32 Sodium Chloride 0.9% 1000 Ml IV 06/15/18 17:29 100 mls/hr .Q10H LOLA Administration Ondansetron HCl 4 mg 05/16/18 17:12 05/17/18 07:29 Zofran 4 Mg/2 Ml Vial IV 06/15/18 17:11 4 mg Q6H PRN PRN Administration NAUSEA/VOMITING Discontinued Medications Generic Name Dose Route Start Last Admin Trade Name Juan PRN Reason Stop Dose Admin Sodium Chloride 1,000 mls @ 999 mls/hr 05/16/18 17:12 05/16/18 17:27 Sodium Chloride 0.9% 1000 Ml IV 05/16/18 18:12 999 mls/hr .Q1H1M STA Administration Intake & Output (Last 24 hours) 05/14/18 05/15/18 05/16/18 05/17/18 11:59 11:59 11:59 11:59 Intake Total 620 Output Total 1625 Balance -1005 Weight 77.3 kg Laboratory Results (Last 24 hours) 05/16/18 05/16/18 05/16/18 19:11 19:11 19:00 WBC 7.3 RBC 4.41 Hgb 13.5 Hct 41.2 MCV 93.4 MCH 30.6 MCHC 32.8 RDW 14.5 H Plt Count 155 MPV 11.1 H Sodium 141 Potassium 3.6 Chloride 108 H Carbon Dioxide 25 Anion Gap 11.5 BUN 16 Creatinine 0.77 Estimated GFR > 60.0 Glucose 88 Calcium 8.7 Total Bilirubin 0.70 AST 22 ALT 21 Alkaline Phosphatase 70 Serum Total Protein 6.4 Albumin 3.8 Ur Collection Type CLEAN CATCH Urine Color YELLOW Urine Appearance CLEAR Urine pH 8.0 Ur Specific [place] 1.005 Urine Protein NEGATIVE Urine Ketones SMALL Urine Blood NEGATIVE Urine Nitrite NEGATIVE Urine Bilirubin NEGATIVE Urine Urobilinogen NORMAL Ur Leukocyte Esterase 1+ Urine Microscopic WBC 0-2 Ur Epithelial Cells FEW Urine Bacteria RARE Urine Glucose NEGATIVE Specimen Received 05/16/18 1900 Orders (Last 24 hours) Category Date Time Status Activity as Tolerated TOLERATED Activity 05/16/18 17:[address] in Observation ROUTINE Care 05/16/18 16:04 Active Regular Diet Diet 05/17/18 Breakfast Active CBC Routine Lab 05/16/18 19:11 Completed CMP Routine Lab 05/16/18 19:11 Completed UA W/ MICROSCOPIC Routine Lab 05/16/18 19:00 Completed Acetaminophen 325 mg [Tylenol 325 mg] Med 05/17/18 00:21 Active 650 mg PO Q4H PRN PRN NaCl 0.9% 1000 ml [Sodium Chloride 0.9% 1000 ML] 1,000 Med 05/16/18 17:30 Active ml IV 100 mls/hr NaCl 0.9% 1000 ml [Sodium Chloride 0.9% 1000 ML] 1,000 Med 05/16/18 17:12 Discontinued ml IV 999 mls/hr Ondansetron HCl 4 mg/2 ml [Zofran 4 MG/2 ML VIAL] Med 05/16/18 17:12 Active 4 mg IV Q6H PRN PRN Code(s): E86.0 - DEHYDRATION Hospital Summary - Hospital Course Hospital Course: Last Vital Signs Temp 98.2 F 05/17/18 11:39 Pulse 50 L 05/17/18 11:39 Resp 18 05/17/18 11:39 BP 109/53 05/17/18 11:39 Pulse Ox 96 05/17/18 11:39 Allergies codeine Allergy (Unknown, Verified 12/24/17 21:43) Penicillins Allergy (Unknown, Verified 12/24/17 21:43) Active Medications Acetaminophen (Tylenol 325 Mg) 650 mg PO Q4H PRN PRN PRN Reason: PAIN AND/OR FEVER Stop: 06/16/18 00:20 Last Admin: 05/17/18 00:25 Dose: 650 mg Sodium Chloride (Sodium Chloride 0.9% 1000 Ml) 1,000 mls @ 100 mls/hr IV .Q10H LOLA Stop: 06/15/18 17:29 Last Admin: 05/17/18 04:32 Dose: 100 mls/hr Ondansetron HCl (Zofran 4 Mg/2 Ml Vial) 4 mg IV Q6H PRN PRN PRN Reason: NAUSEA/VOMITING Stop: 06/15/18 17:11 Last Admin: 05/17/18 07:29 Dose: 4 mg Intake & Output 05/16/18 05/17/18 11:59 11:59 Intake Total 620 Output Total 1625 Balance -1005 Weight 77.3 kg Orders 05/16/18 16:04 Place in Observation ROUTINE 05/16/18 17:12 Activity as Tolerated TOLERATED Ondansetron HCl 4 mg/2 ml [Zofran 4 MG/2 ML VIAL] 4 mg IV Q6H PRN PRN 05/16/18 17:30 NaCl 0.9% 1000 ml [Sodium Chloride 0.9% 1000 ML] 1,000 ml IV 100 mls/hr 05/17/18 00:21 Acetaminophen 325 mg [Tylenol 325 mg] 650 mg PO Q4H PRN PRN 05/17/18 Breakfast Regular Diet Lab Tests 05/16/18 05/16/18 05/16/18 19:00 19:11 19:11 WBC 7.3 RBC 4.41 Hgb 13.5 Hct 41.2 MCV 93.4 MCH 30.6 MCHC 32.8 RDW 14.5 H Plt Count 155 MPV 11.1 H Sodium 141 Potassium 3.6 Chloride 108 H Carbon Dioxide 25 Anion Gap 11.5 BUN 16 Creatinine 0.77 Estimated GFR > 60.0 Glucose 88 Calcium 8.7 Total Bilirubin 0.70 AST 22 ALT 21 Alkaline Phosphatase 70 Serum Total Protein 6.4 Albumin 3.8 Ur Collection Type CLEAN CATCH Urine Color YELLOW Urine Appearance CLEAR Urine pH 8.0 Ur Specific [place] 1.005 Urine Protein NEGATIVE Urine Ketones SMALL Urine Blood NEGATIVE Urine Nitrite NEGATIVE Urine Bilirubin NEGATIVE Urine Urobilinogen NORMAL Ur Leukocyte Esterase 1+ Urine Microscopic WBC 0-2 Ur Epithelial Cells FEW Urine Bacteria RARE Urine Glucose NEGATIVE Specimen Received 05/16/18 1900 - Vitals & Intake/Output Vital Signs: Vital Signs Temperature 98.2 F 05/17/18 11:39 Pulse Rate 50 L 05/17/18 11:39 Respiratory Rate 18 05/17/18 11:39 Blood Pressure 109/53 05/17/18 11:39 O2 Sat by Pulse Oximetry 96 05/17/18 11:39 Intake & Output: Intake & Output 05/14/18 05/15/18 05/16/18 05/17/18 11:59 11:59 11:59 11:59 Intake Total 620 Output Total 1625 Balance -1005 Weight 77.3 kg - Lab Result Diagrams: 05/16/18 19:11 05/16/18 19:11 Lab Results-Last 24 Hrs: Lab Results-Last 24 Hours 05/16/18 05/16/18 05/16/18 Range/Units 19:00 19:11 19:11 WBC 7.3 (4.0-10.5) K/mm3 RBC 4.41 (4.1-5.4) M/mm3 Hgb 13.5 (12.0-16.0) gm/dl Hct 41.2 (35-47) % MCV 93.4 (78-100) fl MCH 30.6 (26-32) pg MCHC 32.8 (32-36) g/dl RDW 14.5 H (11.5-14.0) % Plt Count 155 (150-450) K/mm3 MPV 11.1 H (6-9.5) fl Sodium 141 (137-145) mmol/L Potassium 3.6 (3.5-5.1) mmol/L Chloride 108 H (98-107) mmol/L Carbon Dioxide 25 (22-30) mmol/L Anion Gap 11.5 (5-15) MEQ/L BUN 16 (7-17) mg/dL Creatinine 0.77 (0.52-1.04) mg/dL Estimated GFR > 60.0 ML/MIN Glucose 88 (74-106) mg/dL Calcium 8.7 (8.4-10.2) mg/dL Total Bilirubin 0.70 (0.2-1.3) mg/dL AST 22 (14-36) U/L ALT 21 (0-35) U/L Alkaline Phosphatase 70 (38-126) U/L Serum Total Protein 6.4 (6.3-8.2) g/dL Albumin 3.8 (3.5-5.0) g/dL Ur Collection Type CLEAN CATCH Urine Color YELLOW (YELLOW) Urine Appearance CLEAR (CLEAR) Urine pH 8.0 (5-6) Ur Specific [place] 1.005 (1.005-1.025) Urine Protein NEGATIVE (Negative) Urine Ketones SMALL (NEGATIVE) Urine Blood NEGATIVE (0-5) Migue/ul Urine Nitrite NEGATIVE (NEGATIVE) Urine Bilirubin NEGATIVE (NEGATIVE) Urine Urobilinogen NORMAL (0-1) mg/dL Ur Leukocyte Esterase 1+ (NEGATIVE) Urine Microscopic WBC 0-2 (0-5) /HPF Ur Epithelial Cells FEW (FEW) /HPF Urine Bacteria RARE (NEGATIVE) /HPF Urine Glucose NEGATIVE (NEGATIVE) mg/dL Specimen Received 05/16/18 1900 - Discharge Discharge Date: 05/17/18 Disposition: Home, Self-Care Condition: Stable Prescriptions: No Action No Reportable Medications [No Reported Medications] Instructions: Dehydration, Adult (DC), Nausea and Vomiting, Adult (DC) Follow up with: ISSAC EVERETT MD [Primary Care Provider] - 1 Week Forms: Discharge Instructions
== END 2018-05-17 12:00 | disposition home or self-care (01) ==
LOC: MED SURG 16:04
PROVIDERS: ADMIT General Practice; ATTEND General Practice
DX: E86.0 Dehydration (principal); K74.60 Unspecified cirrhosis of liver; Z85.3 Personal history of malignant neoplasm of breast; Z86.010 Personal history of colon polyps
CPT/HCPCS: 36415; 80053; 81000; 85027; G0378; J2405; A9270-GY

== ENCOUNTER 2022-04-08 08:53 | Emergency (ER) | payer MEDICARE, OTHER ==
--- NOTE | 2022-04-08 08:58 | ERPHSYRPT ---
- History of Present Illness Time Seen by Provider: 04/08/22 08:58 Source: patient Exam Limitations: no limitations Physician History: This is a 71-year-old white female patient of Dr. Everett has a history of chronic back pain, constipation, cirrhosis and diverticulitis and presents with significant back pain over the last week. Patient also states that she feels some pain in the right lower abdomen. Patient has significant anxiety issues. She did not fall or suffer any acute traumatic injury. She has no urinary tract infection symptoms. Timing/Duration: week(s), intermittent, worse Method of Injury: other (No fall or injury) Quality: aching Back Pain Location: lumbar spine Back Pain Radiation: buttocks Severity of Pain-Max: moderate Severity of Pain-Current: moderate Associated Symptoms: constipation, lower back pain, muscle spasms, No fever, No chills, No urinary incontinence, No loss of bowel control, No nausea, No vomiting, No problems urinating, No numbness in legs/feet, No sensory/motor loss Previous symptoms: same symptoms as today Allergies/Adverse Reactions: codeine Allergy (Unknown, Verified 04/08/22 09:31) Penicillins Allergy (Unknown, Verified 04/08/22 09:31) Home Medications: Atorvastatin Calcium [Lipitor 40Mg] 1 tab PO HS 04/08/22 [History] Hx Tetanus, Diphtheria Vaccination/Date Given: No Hx Influenza Vaccination/Date Given: No Hx Pneumococcal Vaccination/Date Given: Yes Travel Risk - International Travel Have you traveled outside of the country in past 3 weeks: No - Coronavirus Screening Are you exhibiting any of the following symptoms?: No Close contact with a COVID-19 positive Pt in past 14-21 Days: No - Review of Systems Constitutional: No Symptoms Eyes: No Symptoms Ears, Nose, & Throat: No Symptoms Respiratory: No Symptoms Cardiac: No Symptoms Abdominal/Gastrointestinal: Constipation Genitourinary Symptoms: No Symptoms Musculoskeletal: Back Pain Skin: No Symptoms Neurological: No Symptoms Psychological: No Symptoms Endocrine: No Symptoms Hematologic/Lymphatic: No Symptoms Immunological/Allergic: No Symptoms All Other Systems: Reviewed and Negative - Past Medical History Neurological History: No Pertinent History ENT History: No Pertinent History Cardiac History: No Pertinent History Respiratory History: No Pertinent History Endocrine Medical History: No Pertinent History Musculoskeletal History: Fractures GI Medical History: Cirrhosis, Diverticulitis, Polyps History: No Pertinent History Psycho-Social History: No Pertinent History Female Reproductive Disorders: Breast Cancer Other Medical History: 01/24/18 Colonoscopy and they removed 6 polyps. Left foot fx this spring (2017) - Past Surgical History Past Surgical History: Yes Neuro Surgical History: No Pertinent History Cardiac: No Pertinent History Respiratory: No Pertinent History Gastrointestinal: Hemorrhoidectomy Genitourinary: No Pertinent History Musculoskeletal: No Pertinent History Female Surgical History: Lumpectomy - Social History Smoking Status: Never smoker Exposure to second hand smoke: No Drug Use: none Patient Lives Alone: No - Nursing Vital Signs Nursing Vital Signs: Initial Vital Signs Temperature 97.5 F 04/08/22 09:32 Pulse Rate 97 H 04/08/22 09:32 Respiratory Rate 18 04/08/22 09:32 Blood Pressure 111/78 04/08/22 09:32 O2 Sat by Pulse Oximetry 97 04/08/22 09:32 Pain Scale Pain Intensity 8 - Physical Exam General Appearance: no apparent distress, alert, anxiety Eye Exam: PERRL/EOMI, eyes nml inspection Ears, Nose, Throat Exam: normal ENT inspection, moist mucous membranes Neck Exam: normal inspection, non-tender, supple, full range of motion Respiratory Exam: normal breath sounds, lungs clear, airway intact, No chest tenderness, No respiratory distress Cardiovascular Exam: regular rate/rhythm, normal heart sounds, normal peripheral pulses Gastrointestinal Exam: soft, normal bowel sounds, tenderness (Mild tenderness to palpation right lower abdomen), guarding, No rebound Pelvic Exam: not done Rectal Exam: not done Back Exam: normal inspection, normal range of motion, No CVA tenderness, No vertebral tenderness Extremity Exam: normal inspection, normal range of motion, pelvis stable Neurologic Exam: alert, oriented x 3, cooperative, 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 as tested, normal mood/affect, nml cerebellar function, nml station & gait, sensation nml Skin Exam: normal color, warm, dry Lymphatic Exam: No adenopathy SpO2 Interpretation: normal O2 Delivery: Room Air - Course Nursing assessment & vital signs reviewed: Yes Ordered Tests: Active Orders 24 hr Category Date Time Status ABDOMEN AND PELVIS W/0 CONTRAS [CT] Stat Exams 04/08/22 09:49 Completed Medication Summary Discontinued Medications Generic Name Dose Route Start Last Admin Trade Name Freq PRN Reason Stop Dose Admin Lorazepam 1 mg 04/08/22 10:14 04/08/22 10:34 Lorazepam 2 Mg/1 Ml 2 Mg Vial IM 04/08/22 10:15 1 mg STAT ONE Administration Lorazepam Confirm 04/08/22 10:34 Lorazepam 2 Mg/1 Ml 2 Mg Vial Administered 04/08/22 10:35 Dose 2 mg .ROUTE .STK-MED ONE - Progress Progress: improved, pain not gone completely, re-examined Progress Note: 04/08/22 12:10 CAT scan of the abdomen pelvis without contrast shows no acute abdominal aortic aneurysm. There is mild lower lumbar degenerative changes present. There is a normal appendix. There is no evidence of significant amount of colonic stool. 04/08/22 12:14 Patient states that she ordinarily does not take narcotic pain medicine. I did ask her how she knows she is allergic to codeine. She just recalled taking that 1 time in the past. I will write for muscle relaxant as well as for tramadol short-term for her pain control. Counseled pt/family regarding: diagnosis, need for follow-up, rad results - Departure Departure Disposition: Home Clinical Impression: Back pain Condition: Stable Critical Care Time: No Referrals: ISSAC EVERETT MD [Primary Care Provider] - Follow up/PCP as directed Additional Instructions: Drink plenty of fluids. Activity as tolerated. Take your medications as prescribed. Follow-up with your primary care physician for further management. Prescriptions: Orphenadrine Citrate 100 mg [Norflex 100 MG Tablet] 100 mg PO QAM #5 tab Tramadol HCl 50 mg [Ultram 50 mg] 50 mg PO BID PRN #10 tablet MDD 2 PRN Reason: Moderate To Severe Pain
[2022-04-08] MEDS ORDERED: Ativan 2 MG/1 ML VIAL IM ONE (10:14)
[2022-04-08] MEDS ORDERED: Ativan 2 MG/1 ML VIAL ONE (10:34)
--- NOTE | 2022-04-08 11:29 | XRAY ---
Indication: Low back pain 2 weeks. History diverticulitis and constipation. Multiple contiguous axial images obtained through the abdomen and pelvis without contrast. Comparison: March 09, 2018. Lung bases remain clear. Heart not enlarged. Stable small hiatal hernia. Noncontrasted stomach and bowel loops nonobstructed again with normal appendix. Again mild scattered descending/sigmoid diverticulosis without diverticulitis, hepatic cysts, bilateral renal cysts, and tiny splenic calcified granulomas. No free fluid/air. Remaining liver, gallbladder, pancreas, spleen, adrenal glands, kidneys, ureters, bladder, and uterus are unremarkable for noncontrast exam. Minimal distal aortic calcifications without AAA. Osseous structures intact again with mild osteopenia, mild lower lumbar degenerative changes, and mild dextrorotoscoliosis centered at L3. Impression: 1. Stable small hiatal hernia, colonic diverticulosis, hepatic/renal cysts, chronic bony findings, and old granulomatous disease. 2. Remaining CT abdomen/pelvis without contrast exam is again negative.
[2022-04-08] MEDS ORDERED: ULTRAM 50 MG PO ONE (12:19)
[2022-04-08] MEDS ORDERED: ULTRAM 50 MG ONE (12:23)
[2022-04-08 12:28] VITALS: BP 111/65; PULSE 84; O2SAT 95
== END 2022-04-08 12:31 | disposition home or self-care (01) ==
LOC: ED 08:53
DX: M54.50 Low back pain, unspecified (principal); R10.31 Right lower quadrant pain; Z79.891 Long term (current) use of opiate analgesic; Z79.899 Other long term (current) drug therapy
CPT/HCPCS: 74176; 96372; 99283; J2060; A9270-GY

== ENCOUNTER 2023-12-15 18:01 | Observation (INO) | payer MEDICARE, OTHER ==
[2023-12-15 19:52] LABS: INFLUENZA A NEGATIVE (NEGATIVE); INFLUENZA B NEGATIVE (NEGATIVE); RESPIRATORY SYNCTIAL VIRUS NEGATIVE (NEGATIVE); SARS-CoV-2 Xpert Express NEGATIVE (NEGATIVE)
--- NOTE | 2023-12-15 19:55 | ERPHSYRPT ---
- History of Present Illness Time Seen by Provider: 12/15/23 19:45 Source: patient Exam Limitations: no limitations Patient Subjective Stated Complaint: C/O cough X 2 days Triage Nursing Assessment: Patient brought back to ER by W/C. She is alert and oriented but anxious. Patient has a dry, forceful cough. It is non-productive at this time. Lungs clear upon auscultation but difficult to be sure due to patient coughing when attempting to deep breath. Skin is hot to touch. Face is flushed. Physician History: Patient is a 73-year-old female presents to our ED with her for evaluation of 2-day history of cough fever cold chills and bodyaches. Patient has a wet sounding cough but nonproductive. No obvious sick contacts. Patient reports she is otherwise healthy. No chest pain no nausea vomiting or diaphore sis. No rash. Symptoms are progressive symptoms are moderate in intensity. No specific worsening or improving factors. Patient voices no other complaints or concerns at this time. Portions of this note were created with voice recognition technology. There may be grammatical, spelling, punctuation or sound alike errors Timing/Duration: day(s) (2 days) Severity: moderate Modifying Factors: Improves With: nothing Associated Symptoms: fever Allergies/Adverse Reactions: codeine Allergy (Unknown, Verified 12/15/23 18:41) Penicillins Allergy (Unknown, Verified 12/15/23 18:41) Home Medications: Atorvastatin Calcium [Lipitor 40Mg] 1 tab PO HS 04/08/22 [History] Amoxicillin/Potassium Clav [Amox-Clav 875-125 mg Tablet] 1 tab PO BID 12/15/23 [History] Lutein [Natural Lutein] 1 cap PO DAILY 12/15/23 [History] Hx Tetanus, Diphtheria Vaccination/Date Given: Yes Hx Influenza Vaccination/Date Given: No Hx Pneumococcal Vaccination/Date Given: Yes Immunizations Up to Date: Yes Travel Risk - International Travel Have you traveled outside of the country in past 3 weeks: No - Emerging Infectious Disease Are you exhibiting symptoms associated with any current EIDs: Yes Symptoms: Cough: New Onset, Fever, Headaches/Body Aches/, Shortness of Breath - Review of Systems Constitutional: No Symptoms, No Fever, No Chills Eyes: No Symptoms Ears, Nose, & Throat: No Symptoms Respiratory: No Symptoms, No Cough, No Dyspnea Cardiac: No Symptoms, No Chest Pain, No Edema, No Syncope Abdominal/Gastrointestinal: No Symptoms, No Abdominal Pain, No Nausea, No Vomiting, No Diarrhea Genitourinary Symptoms: No Symptoms, No Dysuria Musculoskeletal: No Symptoms, No Back Pain, No Neck Pain Skin: No Symptoms, No Rash Neurological: No Symptoms, No Dizziness, No Focal Weakness, No Sensory Changes Psychological: No Symptoms Endocrine: No Symptoms Hematologic/Lymphatic: No Symptoms Immunological/Allergic: No Symptoms All Other Systems: Reviewed and Negative - Past Medical History Pertinent Past Medical History: Yes Neurological History: No Pertinent History ENT History: No Pertinent History Cardiac History: Arrhythmia, High Cholesterol Respiratory History: No Pertinent History Endocrine Medical History: No Pertinent History Musculoskeletal History: Fractures GI Medical History: Cirrhosis, Diverticulitis, Polyps History: No Pertinent History Psycho-Social History: No Pertinent History Female Reproductive Disorders: Breast Cancer Other Medical History: HX: BREAST CANCER WITH 2 LUMPECTOMY LEFT AND TREATED WITH RADIATION 2012, HX OF SVT BUT NO RECENT EPISODES, FX ANKLE (WORE BOOT) - Past Surgical History Past Surgical History: Yes Neuro Surgical History: No Pertinent History Cardiac: No Pertinent History Respiratory: No Pertinent History Gastrointestinal: Hemorrhoidectomy Genitourinary: No Pertinent History Musculoskeletal: No Pertinent History Female Surgical History: Lumpectomy - Social History Smoking Status: Never smoker Exposure to second hand smoke: No Drug Use: none Patient Lives Alone: No - Nursing Vital Signs Nursing Vital Signs: Initial Vital Signs Temperature 101 F 12/15/23 18:35 Pulse Rate 103 H 12/15/23 18:35 Respiratory Rate 30 H 12/15/23 18:35 Blood Pressure 120/74 12/15/23 18:35 O2 Sat by Pulse Oximetry 98 12/15/23 18:35 Pain Scale Pain Intensity 6 - Physical Exam General Appearance: no apparent distress, alert Eye Exam: PERRL/EOMI, eyes nml inspection Ears, Nose, Throat Exam: normal ENT inspection, TMs normal, pharynx normal, moist mucous membranes Neck Exam: normal inspection, non-tender, supple, full range of motion Respiratory Exam: normal breath sounds, lungs clear, airway intact, No respiratory distress Cardiovascular Exam: regular rate/rhythm, normal heart sounds, normal peripheral pulses Gastrointestinal/Abdomen Exam: soft, normal bowel sounds, No tenderness, No mass Back Exam: normal inspection, normal range of motion, No CVA tenderness, No vertebral tenderness Extremity Exam: normal inspection, normal range of motion, pelvis stable Neurologic Exam: alert, oriented x 3, cooperative, normal mood/affect, nml cerebellar function, nml station & gait, sensation nml, No motor deficits Skin Exam: normal color, warm, dry, No rash Lymphatic Exam: No adenopathy SpO2 Interpretation: normal SpO2: 97 O2 Delivery: Room Air - Course Nursing assessment & vital signs reviewed: Yes Ordered Tests: Active Orders 24 hr Category Date Time Status Customer Support Analyst STAT Care 12/15/23 19:52 Active IV Insertion STAT Care 12/15/23 19:52 Active Pulse Oximetry (ED) STAT Care 12/15/23 19:52 Active CHEST 1 VIEW (PORTABLE) Stat Exams 12/15/23 18:40 Taken BLOOD CULTURE Stat Lab 12/15/23 20:33 Received CBC W DIFF Stat Lab 12/15/23 19:05 Completed CMP Stat Lab 12/15/23 19:05 Completed Lactic Acid Stat Lab 12/15/23 19:52 Completed Lactic Acid Stat Lab 12/15/23 22:08 Completed UA W/RFX UR CULTURE Stat Lab 12/15/23 22:05 Completed Transfer Order Routine Transfer 12/16/23 Ordered Medication Summary Generic Name Dose Route Start Last Admin Trade Name Freq PRN Reason Stop Dose Admin Sodium Chloride 1,000 mls @ 100 mls/hr 12/15/23 20:00 12/15/23 20:30 Sodium Chloride 0.9% 1000 Ml IV 01/14/24 19:59 100 mls/hr .Q10H LOLA Administration Discontinued Medications Generic Name Dose Route Start Last Admin Trade Name Freq PRN Reason Stop Dose Admin Acetaminophen 975 mg 12/15/23 19:53 12/15/23 19:58 Acetaminophen 325 Mg Tablet PO 12/15/23 19:54 975 mg STAT STA Administration Acetaminophen Confirm 12/15/23 19:57 Acetaminophen 325 Mg Tablet Administered 12/15/23 19:58 Dose 975 mg .ROUTE .STK-MED ONE Ibuprofen 600 mg 12/15/23 19:53 12/15/23 19:58 Ibuprofen 600 Mg Tablet PO 12/15/23 19:54 600 mg STAT STA Administration Ibuprofen Confirm 12/15/23 19:56 Ibuprofen 600 Mg Tablet Administered 12/15/23 19:57 Dose 600 mg .ROUTE .STK-MED ONE Lab/Rad Data: Laboratory Result Diagrams 12/15/23 19:05 12/15/23 19:05 Laboratory Results 12/15/23 12/15/23 12/15/23 Range/Units 22:08 22:05 19:52 WBC (4.0-10.5) x10^3/uL RBC (4.1-5.4) x10^6/uL Hgb (12.0-16.0) g/dL Hct (35-47) % MCV (78-100) fL MCH (26-32) pg MCHC (32-36) g/dL RDW (11.5-14.0) % Plt Count (150-450) x10^3/uL MPV (7.5-11.0) fL Gran % (36.0-66.0) % Immature Gran % (Auto) (0.00-0.4) % Nucleat RBC Rel Count (0.00-0.1) % Eos # (Auto) (0-0.5) x10^3/uL Immature Gran # (Auto) (0.00-0.03) x10^3u/L Absolute Lymphs (auto) (1.0-4.6) x10^3/uL Absolute Monos (auto) (0.0-1.3) x10^3/uL Absolute Nucleated RBC (0.00-0.01) x10^3u/L Lymphocytes % (24.0-44.0) % Monocytes % (0.0-12.0) % Eosinophils % (0.00-5.0) % Basophils % (0.0-0.4) % Absolute Granulocytes (1.4-6.9) x10^3/uL Basophils # (0-0.4) x10^3/uL Sodium (135-145) mmol/L Potassium (3.5-5.1) mmol/L Chloride (98-107) mmol/L Carbon Dioxide (22-30) mmol/L Anion Gap (5-15) MEQ/L BUN (7-17) mg/dL Creatinine (0.52-1.04) mg/dL Estimated GFR ML/MIN Glucose (74-106) mg/dL Lactic Acid 1.0 1.9 (0.4-2.0) Calcium (8.4-10.2) mg/dL Total Bilirubin (0.2-1.3) mg/dL AST (14-36) U/L ALT (0-35) U/L Alkaline Phosphatase (38-126) U/L Serum Total Protein (6.3-8.2) g/dL Albumin (3.5-5.0) g/dL Urine Color Yellow (Yellow) Urine Appearance Clear (Clear) Urine pH 5.5 (4.6-8.0) Ur Specific [place] >=1.030 A (1.005-1.030) Urine Protein Negative (Negative) Urine Glucose (UA) Negative (Negative) mg/dL Urine Ketones 40 A (Negative) Urine Blood Negative (Negative) Urine Nitrite Negative (Negative) Urine Bilirubin Negative (Negative) Urine Urobilinogen 0.2 (0.2) mg/dL Ur Leukocyte Esterase Negative (Negative) U Hyaline Cast (Auto) NONE SEEN (0-2) /LPF Urine Microscopic RBC 3-5 (0-5) /HPF Urine Microscopic WBC 0-2 (0-5) /HPF Ur Epithelial Cells None Seen (None Seen) /HPF Urine Bacteria None Seen (None Seen) /HPF Urine Culture Reflexed NO (NO) Influenza Type A Ag (NEGATIVE) Influenza Type B Ag (NEGATIVE) RSV (PCR) (NEGATIVE) SARS-CoV-2 (PCR) (NEGATIVE) Slides for Path Review 12/15/23 12/15/23 12/15/23 Range/Units 19:05 19:05 19:05 WBC 6.3 (4.0-10.5) x10^3/uL RBC 4.33 (4.1-5.4) x10^6/uL Hgb 13.1 (12.0-16.0) g/dL Hct 40.4 (35-47) % MCV 93.3 (78-100) fL MCH 30.3 (26-32) pg MCHC 32.4 (32-36) g/dL RDW 14.4 H (11.5-14.0) % Plt Count 101 L (150-450) x10^3/uL MPV 10.7 (7.5-11.0) fL Gran % 71.6 H (36.0-66.0) % Immature Gran % (Auto) 0.3 (0.00-0.4) % Nucleat RBC Rel Count 0.0 (0.00-0.1) % Eos # (Auto) 0.11 (0-0.5) x10^3/uL Immature Gran # (Auto) 0.02 (0.00-0.03) x10^3u/L Absolute Lymphs (auto) 0.83 L (1.0-4.6) x10^3/uL Absolute Monos (auto) 0.81 (0.0-1.3) x10^3/uL Absolute Nucleated RBC 0.00 (0.00-0.01) x10^3u/L Lymphocytes % 13.2 L (24.0-44.0) % Monocytes % 12.9 H (0.0-12.0) % Eosinophils % 1.8 (0.00-5.0) % Basophils % 0.2 (0.0-0.4) % Absolute Granulocytes 4.49 (1.4-6.9) x10^3/uL Basophils # 0.01 (0-0.4) x10^3/uL Sodium 138 (135-145) mmol/L Potassium 4.0 (3.5-5.1) mmol/L Chloride 104 (98-107) mmol/L Carbon Dioxide 22 (22-30) mmol/L Anion Gap 15.0 (5-15) MEQ/L BUN 21 H (7-17) mg/dL Creatinine 1.00 (0.52-1.04) mg/dL Estimated GFR 59.1 ML/MIN Glucose 99 (74-106) mg/dL Lactic Acid (0.4-2.0) Calcium 9.3 (8.4-10.2) mg/dL Total Bilirubin 0.70 (0.2-1.3) mg/dL AST 42 H (14-36) U/L ALT 29 (0-35) U/L Alkaline Phosphatase 80 (38-126) U/L Serum Total Protein 7.4 (6.3-8.2) g/dL Albumin 4.2 (3.5-5.0) g/dL Urine Color (Yellow) Urine Appearance (Clear) Urine pH (4.6-8.0) Ur Specific [place] (1.005-1.030) Urine Protein (Negative) Urine Glucose (UA) (Negative) mg/dL Urine Ketones (Negative) Urine Blood (Negative) Urine Nitrite (Negative) Urine Bilirubin (Negative) Urine Urobilinogen (0.2) mg/dL Ur Leukocyte Esterase (Negative) U Hyaline Cast (Auto) (0-2) /LPF Urine Microscopic RBC (0-5) /HPF Urine Microscopic WBC (0-5) /HPF Ur Epithelial Cells (None Seen) /HPF Urine Bacteria (None Seen) /HPF Urine Culture Reflexed (NO) Influenza Type A Ag NEGATIVE (NEGATIVE) Influenza Type B Ag NEGATIVE (NEGATIVE) RSV (PCR) NEGATIVE (NEGATIVE) SARS-CoV-2 (PCR) NEGATIVE (NEGATIVE) Slides for Path Review YES - Progress Progress: improved Progress Note: 73-year-old female presents to our ED for evaluation of fever cough chills body aches decreased p.o. Physical exam reveals a ill-appearing female with a ongoing dry cough. Laboratory workup reveals a dehydration. Patient is RSV influenza COVID-negative. Patient states she feels very weak. In light of her dehydration and her age and her ongoing symptomology we will admit for dehydration and generalized weakness. Case discussed with Dr. Gonzalez who accepts admission to observation. Plan of care discussed with patient. Patient agrees to admission to [facility] for further evaluation and tr eatment. Portions of this note were created with voice recognition technology. There may be grammatical, spelling, punctuation or sound alike errors Complexity problem addressed is moderate acute complicated No critical care time Complexity of data reviewed and analyzed is extensive. Test ordered test reviewed results analyzed and correlated clinically with history and physical exam Risk of complication and or risk of morbidity/mortality of patient management is high. Patient requires hospitalization for further evaluation and treatment. Vital stable. Time spent to admit patient is approximately 25 minutes. Plan of care established for shared decision making. No social determinants of health present impede follow-up. Portions of this note were created with voice recognition technology. There may be grammatical, spelling, punctuation or sound alike errors 12/16/23 00:10 Discussed with : Charanjit (Case discussed. Dr. Chen at approximately 12 PM) Counseled pt/family regarding: lab results, diagnosis - Departure Departure Disposition: Observation Clinical Impression: Bronchitis, Cough, Generalized weakness, Dehydration Condition: Stable Critical Care Time: No Referrals: ISSAC EVERETT MD [Primary Care Provider] - Follow up/PCP as directed
[2023-12-15] MEDS ORDERED: MOTRIN 600 MG ONE (19:56)
[2023-12-15] MEDS ORDERED: TYLENOL 325 MG ONE (19:57)
[2023-12-15] MEDS: TYLENOL 325 MG PO STA (19:58)
[2023-12-15] MEDS: MOTRIN 600 MG PO STA (19:58)
[2023-12-15 20:02] LABS: ALBUMIN 4.2 g/dL (3.5-5.0); BILIRUBIN,TOTAL 0.7 mg/dL (0.2-1.3); Calcium 9.3 mg/dL (8.4-10.2); EST GLOMERULAR FILTRATION RATE 59.1 ML/MIN; Total Protein 7.4 g/dL (6.3-8.2)
[2023-12-15] MEDS: Sodium Chloride 0.9% 1000 ML 1,000 ML IV SCH (20:30)
[2023-12-15 20:54] LABS: Absolute Neutrophil Ct (ANC) 4.49 x10^3/uL (1.4-6.9); BASOPHIL % 0.2 % (0.0-0.4); Basophil (Absolute #) 0.01 x10^3/uL (0-0.4); Eosinophil % 1.8 % (0.00-5.0); Eosinophil (Absolute #) 0.11 x10^3/uL (0-0.5); Hematocrit 40.4 % (35-47); Hemoglobin 13.1 g/dL (12.0-16.0); IMMATURE GRAN # 0.02 x10^3u/L (0.00-0.03); IMMATURE GRAN % 0.3 % (0.00-0.4); Lymphocyte (Absolute #) 0.83 x10^3/uL (1.0-4.6); Lymphocytes % 13.2 % (24.0-44.0); Mean Cell Volume 93.3 fL (78-100); Mean Corpuscular Hemoglobin 30.3 pg (26-32); Mean Corpuscular Hgb Concent. 32.4 g/dL (32-36); Mean Platelet Volume 10.7 fL (7.5-11.0); Monocyte (Absolute #) 0.81 x10^3/uL (0.0-1.3); Monocytes % 12.9 % (0.0-12.0); Neutrophil % 71.6 % (36.0-66.0); Platelet Count 101 x10^3/uL (150-450); Red Blood Count 4.33 x10^6/uL (4.1-5.4); Red Cell Distribution Width 14.4 % (11.5-14.0); White Blood Count 6.3 x10^3/uL (4.0-10.5)
[2023-12-15 21:35] LABS: Slide Review 1 YES
[2023-12-15 22:14] LABS: ADD URINE CULTURE? NO (NO); Appearance Clear (Clear); Bacteria None Seen /HPF (None Seen); Bilirubin Negative (Negative); Blood Negative (Negative); Epithelial Cells None Seen /HPF (None Seen); Glucose, Urine Negative (Negative); Hyaline Casts NONE SEEN /LPF (0-2); Ketones 40 (Negative); Leukocyte Esterase Negative (Negative); Nitrite Negative (Negative); Ph 5.5 (4.6-8.0); Protein,Urine Dip Negative (Negative); Specific Gravity >=1.030 (1.005-1.030); Urobilinogen 0.2 mg/dL (0.2); WBC 0-2 /HPF (0-5)
[2023-12-16] MEDS ORDERED: DUONEB 0.5-3 MG/3 ml Neb IH ONE (00:09)
[2023-12-16] MEDS: DUONEB 0.5-3 MG/3 ml Neb IH ONE (00:11)
[2023-12-16] MEDS ORDERED: Sterile H2O 10 ml IJ ONE (01:03)
[2023-12-16] MEDS ORDERED: solu-MEDROL ONE (01:03)
[2023-12-16] MEDS: solu-MEDROL 125 MG, Sterile H2O 10 ml 2 ML IV ONE (01:04)
[2023-12-16] MEDS ORDERED: TYLENOL 325 MG PO PRN (02:39)
--- NOTE | 2023-12-16 02:47 | PCM.HP ---
History of Present Illness - Chief Complaint Chief Complaint: Dehydration, generalized weakness Date: 12/16/23 History of Present Illness: 73-year-old with a history of allergic rhinitis, who presents with cough. Patient presents with 2 to 3 days of cough minimally productive of sputum, fevers, and some mild diarrhea. Denies any sick contacts, dyspnea, chest pain, nausea, or sore throat. However, she has had a poor appetite, only eating a salad for lunch yesterday, nothing today. She was given some cough medicine by her cloth handler, as well as a prescription for Augmentin today, which she has not yet started taking. However, she felt progressively worse, generalized weakness, so came to the ED. In the ED, vitals were stable and had no infiltrate on chest x-ray, but patient was unable to ambulate due to her severe weakness and dehydration. She is being admitted for supportive care. - Review of Systems Constitutional: Weakness, No Fever, No Chills Eyes: No Eye Redness, No Itchy Ears, Nose, & Throat: No Nose Discharge, No Sinus Drainage, No Throat Pain Respiratory: Cough, No Short Of Breath, No Wheezing Cardiac: No Chest Pain, No Edema Abdominal/Gastrointestinal: Diarrhea, No Abdominal Pain, No Nausea, No Vomiting Genitourinary Symptoms: Frequency, No Dysuria All Other Systems: Reviewed and Negative Medications & Allergies Home Medications: Home Medication List Atorvastatin Calcium [Lipitor 40Mg] 1 tab PO HS 04/08/22 [History Confirmed 12/15/23] Amoxicillin/Potassium Clav [Amox-Clav 875-125 mg Tablet] 1 tab PO BID 12/15/23 [History Confirmed 12/15/23] Lutein [Natural Lutein] 1 cap PO DAILY 12/15/23 [History Confirmed 12/15/23] Allergies/Adverse Reactions: Allergies Allergy/AdvReac Type Severity Reaction Status Date / Time codeine Allergy Unknown Verified 12/15/23 18:41 Penicillins Allergy Unknown Verified 12/15/23 18:41 - Past Medical History Past Medical History: Yes Neurological History: No Pertinent History ENT History: No Pertinent History Cardiac History: Arrhythmia, High Cholesterol Respiratory History: No Pertinent History Endocrine Medical History: No Pertinent History Musculoskelatal History: Fractures GI Medical History: Cirrhosis, Diverticulitis, Polyps History: No Pertinent History Pyscho-Social History: No Pertinent History Reproductive Disorders: Breast Cancer Comment: HX: BREAST CANCER WITH 2 LUMPECTOMY LEFT AND TREATED WITH RADIATION 2012, HX OF SVT BUT NO RECENT EPISODES, FX ANKLE (WORE BOOT) - Female History Are you now?: No - Past Surgical History Past Surgical History: Yes Neuro Surgical History: No Pertinent History Cardiac History: No Pertinent History Respiratory Surgery: No Pertinent History GI Surgical History: Hemorrhoidectomy Genitourinary Surgical Hx: No Pertinent History Musculskeletal Surgical Hx: No Pertinent History Female Surgical History: Lumpectomy Significant Family History: other (Mother with asthma) - Social History Smoking Status: Never smoker Exposure to second hand smoke: No Alcohol: None Drug Use: none - Social Determinants of Health Will the patient participate in the screening: Yes Do you worry about a steady place to live?: No Do you have any problems with any of the following?: No known problems In the past 12 months,have you had to go without utilities?: No Have you or anyone in your house had to go without enough: No Transportation Issues: No Has anyone in your support network made you feel unsafe?: No Does the patient want assistance with any of the above?: No - Physical Exam Vital Signs: Vital Signs - 24 hr Temp Pulse Resp BP BP Pulse Ox 12/16/23 01:34 97.9 F 86 16 124/58 97 12/16/23 00:14 97 12/16/23 00:11 67 22 95 12/16/23 00:00 86 17 93/40 93 L 12/15/23 23:00 67 20 105/61 94 L 12/15/23 22:59 69 14 97 12/15/23 22:50 71 18 97 12/15/23 22:40 73 23 96 12/15/23 21:00 107/72 12/15/23 20:11 90 L 12/15/23 20:01 85 21 120/82 95 12/15/23 19:49 92 H 39 H 114/63 92 L 12/15/23 19:48 93 H 18 98 12/15/23 19:40 99.2 F 100 H 21 114/63 93 L 12/15/23 19:32 85 26 H 95 12/15/23 18:39 95 H 25 H 120/74 97 12/15/23 18:35 101 F 103 H 30 H 120/74 98 GEN: Lying in bed in no acute distress, NEURO: No focal deficits CV: Regular rate & rhythm, no murmurs, no edema PULM: Clear to auscultation bilaterally, no work of breathing, on room air ABD: Soft, non-distended, normoactive bowel sounds PSYCH: Alert, oriented x3 Results - Labs Lab/Micro Results: Lab Results-Last 24 Hours 12/15/23 12/15/23 12/15/23 Range/Units 19:05 19:05 19:05 WBC 6.3 (4.0-10.5) x10^3/uL RBC 4.33 (4.1-5.4) x10^6/uL Hgb 13.1 (12.0-16.0) g/dL Hct 40.4 (35-47) % MCV 93.3 (78-100) fL MCH 30.3 (26-32) pg MCHC 32.4 (32-36) g/dL RDW 14.4 H (11.5-14.0) % Plt Count 101 L (150-450) x10^3/uL MPV 10.7 (7.5-11.0) fL Gran % 71.6 H (36.0-66.0) % Immature Gran % (Auto) 0.3 (0.00-0.4) % Nucleat RBC Rel Count 0.0 (0.00-0.1) % Eos # (Auto) 0.11 (0-0.5) x10^3/uL Immature Gran # (Auto) 0.02 (0.00-0.03) x10^3u/L Absolute Lymphs (auto) 0.83 L (1.0-4.6) x10^3/uL Absolute Monos (auto) 0.81 (0.0-1.3) x10^3/uL Absolute Nucleated RBC 0.00 (0.00-0.01) x10^3u/L Lymphocytes % 13.2 L (24.0-44.0) % Monocytes % 12.9 H (0.0-12.0) % Eosinophils % 1.8 (0.00-5.0) % Basophils % 0.2 (0.0-0.4) % Absolute Granulocytes 4.49 (1.4-6.9) x10^3/uL Basophils # 0.01 (0-0.4) x10^3/uL Sodium 138 (135-145) mmol/L Potassium 4.0 (3.5-5.1) mmol/L Chloride 104 (98-107) mmol/L Carbon Dioxide 22 (22-30) mmol/L Anion Gap 15.0 (5-15) MEQ/L BUN 21 H (7-17) mg/dL Creatinine 1.00 (0.52-1.04) mg/dL Estimated GFR 59.1 ML/MIN Glucose 99 (74-106) mg/dL Lactic Acid (0.4-2.0) Calcium 9.3 (8.4-10.2) mg/dL Total Bilirubin 0.70 (0.2-1.3) mg/dL AST 42 H (14-36) U/L ALT 29 (0-35) U/L Alkaline Phosphatase 80 (38-126) U/L Serum Total Protein 7.4 (6.3-8.2) g/dL Albumin 4.2 (3.5-5.0) g/dL Urine Color (Yellow) Urine Appearance (Clear) Urine pH (4.6-8.0) Ur Specific [place] (1.005-1.030) Urine Protein (Negative) Urine Glucose (UA) (Negative) mg/dL Urine Ketones (Negative) Urine Blood (Negative) Urine Nitrite (Negative) Urine Bilirubin (Negative) Urine Urobilinogen (0.2) mg/dL Ur Leukocyte Esterase (Negative) U Hyaline Cast (Auto) (0-2) /LPF Urine Microscopic RBC (0-5) /HPF Urine Microscopic WBC (0-5) /HPF Ur Epithelial Cells (None Seen) /HPF Urine Bacteria (None Seen) /HPF Urine Culture Reflexed (NO) Influenza Type A Ag NEGATIVE (NEGATIVE) Influenza Type B Ag NEGATIVE (NEGATIVE) RSV (PCR) NEGATIVE (NEGATIVE) SARS-CoV-2 (PCR) NEGATIVE (NEGATIVE) Slides for Path Review YES 12/15/23 12/15/23 12/15/23 Range/Units 19:52 22:05 22:08 WBC (4.0-10.5) x10^3/uL RBC (4.1-5.4) x10^6/uL Hgb (12.0-16.0) g/dL Hct (35-47) % MCV (78-100) fL MCH (26-32) pg MCHC (32-36) g/dL RDW (11.5-14.0) % Plt Count (150-450) x10^3/uL MPV (7.5-11.0) fL Gran % (36.0-66.0) % Immature Gran % (Auto) (0.00-0.4) % Nucleat RBC Rel Count (0.00-0.1) % Eos # (Auto) (0-0.5) x10^3/uL Immature Gran # (Auto) (0.00-0.03) x10^3u/L Absolute Lymphs (auto) (1.0-4.6) x10^3/uL Absolute Monos (auto) (0.0-1.3) x10^3/uL Absolute Nucleated RBC (0.00-0.01) x10^3u/L Lymphocytes % (24.0-44.0) % Monocytes % (0.0-12.0) % Eosinophils % (0.00-5.0) % Basophils % (0.0-0.4) % Absolute Granulocytes (1.4-6.9) x10^3/uL Basophils # (0-0.4) x10^3/uL Sodium (135-145) mmol/L Potassium (3.5-5.1) mmol/L Chloride (98-107) mmol/L Carbon Dioxide (22-30) mmol/L Anion Gap (5-15) MEQ/L BUN (7-17) mg/dL Creatinine (0.52-1.04) mg/dL Estimated GFR ML/MIN Glucose (74-106) mg/dL Lactic Acid 1.9 1.0 (0.4-2.0) Calcium (8.4-10.2) mg/dL Total Bilirubin (0.2-1.3) mg/dL AST (14-36) U/L ALT (0-35) U/L Alkaline Phosphatase (38-126) U/L Serum Total Protein (6.3-8.2) g/dL Albumin (3.5-5.0) g/dL Urine Color Yellow (Yellow) Urine Appearance Clear (Clear) Urine pH 5.5 (4.6-8.0) Ur Specific [place] >=1.030 A (1.005-1.030) Urine Protein Negative (Negative) Urine Glucose (UA) Negative (Negative) mg/dL Urine Ketones 40 A (Negative) Urine Blood Negative (Negative) Urine Nitrite Negative (Negative) Urine Bilirubin Negative (Negative) Urine Urobilinogen 0.2 (0.2) mg/dL Ur Leukocyte Esterase Negative (Negative) U Hyaline Cast (Auto) NONE SEEN (0-2) /LPF Urine Microscopic RBC 3-5 (0-5) /HPF Urine Microscopic WBC 0-2 (0-5) /HPF Ur Epithelial Cells None Seen (None Seen) /HPF Urine Bacteria None Seen (None Seen) /HPF Urine Culture Reflexed NO (NO) Influenza Type A Ag (NEGATIVE) Influenza Type B Ag (NEGATIVE) RSV (PCR) (NEGATIVE) SARS-CoV-2 (PCR) (NEGATIVE) Slides for Path Review - Radiology Impressions Radiology Exams & Impressions: Radiology Procedures Category Date Time Status CHEST 1 VIEW (PORTABLE) Stat Exams 12/15/23 18:40 Taken Chest x-ray no infiltrates, effusions, or edema. (Images personally reviewed.) - Other Procedures and Tests Respiratory Therapy 12/16/23 00:15 Respiratory Therapy Assessment DAILY Assessment/Plan (1) Cough Current Visit: Yes Status: Acute Assessment & Plan: 73-year-old with history of vaginitis, here with viral URI syndrome and generalized weakness. ## URI likely viral, with no evidence of pneumonia on exam. Not requiring oxygen, but with such severe poor oral intake that she has developed generalized weakness. No RITU, but her urine is concentrated with positive ketones, all consistent with poor oral intake. KENDALL Murdock Gentle IV fluids Encourage p.o. intake in the morning Suspect patient will be able to be discharged in the morning after getting IV fluids, if able to ambulate CODE STATUS: Full code Diet: Regular Prophylaxis: Short stay, no need for pharmacologic prophylaxis Code(s): R05.9 - COUGH, UNSPECIFIED Telemedicine Encounter - Telemedicine Encounter Telemedicine Encounter: The entirety of this encounter was performed via Telemedicine"
[2023-12-16] MEDS: Robitussin AC Syrup Unit Dose Cup PO PRN (03:32)
[2023-12-16 05:34] LABS: ANION GAP 10.5 MEQ/L (5-15); Calcium 8.3 mg/dL (8.4-10.2); Creatinine 1 0.87 mg/dL (0.52-1.04); EST GLOMERULAR FILTRATION RATE 69.9 ML/MIN
[2023-12-16 07:33] LABS: Hematocrit 38.7 % (35-47); Hemoglobin 12.5 g/dL (12.0-16.0); Mean Cell Volume 94.6 fL (78-100); Mean Corpuscular Hemoglobin 30.6 pg (26-32); Mean Corpuscular Hgb Concent. 32.3 g/dL (32-36); Mean Platelet Volume 11.9 fL (7.5-11.0); Red Blood Count 4.09 x10^6/uL (4.1-5.4); Red Cell Distribution Width 14.6 % (11.5-14.0); White Blood Count 4.5 x10^3/uL (4.0-10.5)
[2023-12-16 07:38] LABS: Platelet Count 132 x10^3/uL (150-450)
[2023-12-16] MEDS: DUONEB 0.5-3 MG/3 ml Neb IH PRN (08:08)
[2023-12-16 08:11] VITALS: PULSE 85
[2023-12-16 08:24] LABS: Slide Review YES
--- NOTE | 2023-12-16 08:33 | XRAY ---
Indication: Fever and cough. Comparison: None Portable chest hyperinflated and clear with a few incidental calcified granulomas. Heart not enlarged with incidental tortuous descending aorta. Bony thorax intact with osteopenia, mild degenerative changes, and minimal double curvature scoliosis. Impression: Nonacute chest with chronic features.
[2023-12-16] MEDS: Tessalon Perles 100 MG PO SCH (10:04)
--- NOTE | 2023-12-16 11:19 | PCM.DS ---
Discharge Summary Date of Admission: 12/16/23 01:03 Admitting Physician: SHAHEEN CHAVIRA MD Primary Care Provider: ISSAC EVERETT Allergies Allergies codeine Allergy (Unknown, Verified 12/15/23 18:41) Penicillins Allergy (Unknown, Verified 12/15/23 18:41) Hospital Summary - Hospital Course Hospital Course: Admission Information: 73-year-old with a history of allergic rhinitis, who presents with cough. Patient presents with 2 to 3 days of cough minimally productive of sputum, fevers, and some mild diarrhea. Denies any sick contacts, dyspnea, chest pain, nausea, or sore throat. However, she has had a poor appetite, only eating a salad for lunch yesterday, nothing today. She was given some cough medicine by her jigger artisan, as well as a prescription for Augmentin today, which she has not yet started taking. However, she felt progressively worse, generalized weakness, so came to the ED. In the ED, vitals were stable and had no infiltrate on chest x-ray, but patient was unable to ambulate due to her severe weakness and dehydration. She is being admitted for supportive care. Hospital Course: Patient received IV fluids and was feeling a little better this morning but still had a significant cough. She likely has acute bronchitis viral. Emigdio Mabry with Codeine Rx was sent to the pharmacy and she was advised to follow up with her PCP. - Vitals & Intake/Output Vital Signs: Vital Signs Temperature 97.8 F 12/16/23 07:26 Pulse Rate 85 12/16/23 08:08 Respiratory Rate 24 12/16/23 08:08 Blood Pressure 114/79 12/16/23 07:26 O2 Sat by Pulse Oximetry 92 L 12/16/23 08:08 Intake & Output: Intake & Output 12/13/23 12/14/23 12/15/23 12/16/23 11:59 11:59 11:59 11:59 Intake Total 120 Balance 120 Weight 78.3 kg - Lab Result Diagrams: 12/16/23 05:19 12/16/23 05:19 Lab Results-Last 24 Hrs: Lab Results-Last 24 Hours 12/15/23 12/15/23 12/15/23 Range/Units 19:05 19:05 19:05 WBC 6.3 (4.0-10.5) x10^3/uL RBC 4.33 (4.1-5.4) x10^6/uL Hgb 13.1 (12.0-16.0) g/dL Hct 40.4 (35-47) % MCV 93.3 (78-100) fL MCH 30.3 (26-32) pg MCHC 32.4 (32-36) g/dL RDW 14.4 H (11.5-14.0) % Plt Count 101 L (150-450) x10^3/uL MPV 10.7 (7.5-11.0) fL Gran % 71.6 H (36.0-66.0) % Immature Gran % (Auto) 0.3 (0.00-0.4) % Nucleat RBC Rel Count 0.0 (0.00-0.1) % Eos # (Auto) 0.11 (0-0.5) x10^3/uL Immature Gran # (Auto) 0.02 (0.00-0.03) x10^3u/L Absolute Lymphs (auto) 0.83 L (1.0-4.6) x10^3/uL Absolute Monos (auto) 0.81 (0.0-1.3) x10^3/uL Absolute Nucleated RBC 0.00 (0.00-0.01) x10^3u/L Lymphocytes % 13.2 L (24.0-44.0) % Monocytes % 12.9 H (0.0-12.0) % Eosinophils % 1.8 (0.00-5.0) % Basophils % 0.2 (0.0-0.4) % Absolute Granulocytes 4.49 (1.4-6.9) x10^3/uL Basophils # 0.01 (0-0.4) x10^3/uL Sodium 138 (135-145) mmol/L Potassium 4.0 (3.5-5.1) mmol/L Chloride 104 (98-107) mmol/L Carbon Dioxide 22 (22-30) mmol/L Anion Gap 15.0 (5-15) MEQ/L BUN 21 H (7-17) mg/dL Creatinine 1.00 (0.52-1.04) mg/dL Estimated GFR 59.1 ML/MIN Glucose 99 (74-106) mg/dL Lactic Acid (0.4-2.0) Calcium 9.3 (8.4-10.2) mg/dL Total Bilirubin 0.70 (0.2-1.3) mg/dL AST 42 H (14-36) U/L ALT 29 (0-35) U/L Alkaline Phosphatase 80 (38-126) U/L Serum Total Protein 7.4 (6.3-8.2) g/dL Albumin 4.2 (3.5-5.0) g/dL Urine Color (Yellow) Urine Appearance (Clear) Urine pH (4.6-8.0) Ur Specific Max (1.005-1.030) Urine Protein (Negative) Urine Glucose (UA) (Negative) mg/dL Urine Ketones (Negative) Urine Blood (Negative) Urine Nitrite (Negative) Urine Bilirubin (Negative) Urine Urobilinogen (0.2) mg/dL Ur Leukocyte Esterase (Negative) U Hyaline Cast (Auto) (0-2) /LPF Urine Microscopic RBC (0-5) /HPF Urine Microscopic WBC (0-5) /HPF Ur Epithelial Cells (None Seen) /HPF Urine Bacteria (None Seen) /HPF Urine Culture Reflexed (NO) Influenza Type A Ag NEGATIVE (NEGATIVE) Influenza Type B Ag NEGATIVE (NEGATIVE) RSV (PCR) NEGATIVE (NEGATIVE) SARS-CoV-2 (PCR) NEGATIVE (NEGATIVE) Slides for Path Review YES 12/15/23 12/15/23 12/15/23 Range/Units 19:52 22:05 22:08 WBC (4.0-10.5) x10^3/uL RBC (4.1-5.4) x10^6/uL Hgb (12.0-16.0) g/dL Hct (35-47) % MCV (78-100) fL MCH (26-32) pg MCHC (32-36) g/dL RDW (11.5-14.0) % Plt Count (150-450) x10^3/uL MPV (7.5-11.0) fL Gran % (36.0-66.0) % Immature Gran % (Auto) (0.00-0.4) % Nucleat RBC Rel Count (0.00-0.1) % Eos # (Auto) (0-0.5) x10^3/uL Immature Gran # (Auto) (0.00-0.03) x10^3u/L Absolute Lymphs (auto) (1.0-4.6) x10^3/uL Absolute Monos (auto) (0.0-1.3) x10^3/uL Absolute Nucleated RBC (0.00-0.01) x10^3u/L Lymphocytes % (24.0-44.0) % Monocytes % (0.0-12.0) % Eosinophils % (0.00-5.0) % Basophils % (0.0-0.4) % Absolute Granulocytes (1.4-6.9) x10^3/uL Basophils # (0-0.4) x10^3/uL Sodium (135-145) mmol/L Potassium (3.5-5.1) mmol/L Chloride (98-107) mmol/L Carbon Dioxide (22-30) mmol/L Anion Gap (5-15) MEQ/L BUN (7-17) mg/dL Creatinine (0.52-1.04) mg/dL Estimated GFR ML/MIN Glucose (74-106) mg/dL Lactic Acid 1.9 1.0 (0.4-2.0) Calcium (8.4-10.2) mg/dL Total Bilirubin (0.2-1.3) mg/dL AST (14-36) U/L ALT (0-35) U/L Alkaline Phosphatase (38-126) U/L Serum Total Protein (6.3-8.2) g/dL Albumin (3.5-5.0) g/dL Urine Color Yellow (Yellow) Urine Appearance Clear (Clear) Urine pH 5.5 (4.6-8.0) Ur Specific Max >=1.030 A (1.005-1.030) Urine Protein Negative (Negative) Urine Glucose (UA) Negative (Negative) mg/dL Urine Ketones 40 A (Negative) Urine Blood Negative (Negative) Urine Nitrite Negative (Negative) Urine Bilirubin Negative (Negative) Urine Urobilinogen 0.2 (0.2) mg/dL Ur Leukocyte Esterase Negative (Negative) U Hyaline Cast (Auto) NONE SEEN (0-2) /LPF Urine Microscopic RBC 3-5 (0-5) /HPF Urine Microscopic WBC 0-2 (0-5) /HPF Ur Epithelial Cells None Seen (None Seen) /HPF Urine Bacteria None Seen (None Seen) /HPF Urine Culture Reflexed NO (NO) Influenza Type A Ag (NEGATIVE) Influenza Type B Ag (NEGATIVE) RSV (PCR) (NEGATIVE) SARS-CoV-2 (PCR) (NEGATIVE) Slides for Path Review 12/16/23 12/16/23 Range/Units 05:19 05:19 WBC 4.5 (4.0-10.5) x10^3/uL RBC 4.09 L (4.1-5.4) x10^6/uL Hgb 12.5 (12.0-16.0) g/dL Hct 38.7 (35-47) % MCV 94.6 (78-100) fL MCH 30.6 (26-32) pg MCHC 32.3 (32-36) g/dL RDW 14.6 H (11.5-14.0) % Plt Count 132 L (150-450) x10^3/uL MPV 11.9 H (7.5-11.0) fL Gran % (36.0-66.0) % Immature Gran % (Auto) (0.00-0.4) % Nucleat RBC Rel Count (0.00-0.1) % Eos # (Auto) (0-0.5) x10^3/uL Immature Gran # (Auto) (0.00-0.03) x10^3u/L Absolute Lymphs (auto) (1.0-4.6) x10^3/uL Absolute Monos (auto) (0.0-1.3) x10^3/uL Absolute Nucleated RBC (0.00-0.01) x10^3u/L Lymphocytes % (24.0-44.0) % Monocytes % (0.0-12.0) % Eosinophils % (0.00-5.0) % Basophils % (0.0-0.4) % Absolute Granulocytes (1.4-6.9) x10^3/uL Basophils # (0-0.4) x10^3/uL Sodium 139 (135-145) mmol/L Potassium 4.0 (3.5-5.1) mmol/L Chloride 112 H (98-107) mmol/L Carbon Dioxide 21 L (22-30) mmol/L Anion Gap 10.5 (5-15) MEQ/L BUN 16 (7-17) mg/dL Creatinine 0.87 (0.52-1.04) mg/dL Estimated GFR 69.9 ML/MIN Glucose 80 (74-106) mg/dL Lactic Acid (0.4-2.0) Calcium 8.3 L (8.4-10.2) mg/dL Total Bilirubin (0.2-1.3) mg/dL AST (14-36) U/L ALT (0-35) U/L Alkaline Phosphatase (38-126) U/L Serum Total Protein (6.3-8.2) g/dL Albumin (3.5-5.0) g/dL Urine Color (Yellow) Urine Appearance (Clear) Urine pH (4.6-8.0) Ur Specific Max (1.005-1.030) Urine Protein (Negative) Urine Glucose (UA) (Negative) mg/dL Urine Ketones (Negative) Urine Blood (Negative) Urine Nitrite (Negative) Urine Bilirubin (Negative) Urine Urobilinogen (0.2) mg/dL Ur Leukocyte Esterase (Negative) U Hyaline Cast (Auto) (0-2) /LPF Urine Microscopic RBC (0-5) /HPF Urine Microscopic WBC (0-5) /HPF Ur Epithelial Cells (None Seen) /HPF Urine Bacteria (None Seen) /HPF Urine Culture Reflexed (NO) Influenza Type A Ag (NEGATIVE) Influenza Type B Ag (NEGATIVE) RSV (PCR) (NEGATIVE) SARS-CoV-2 (PCR) (NEGATIVE) Slides for Path Review YES - Radiology Exams Ordered Rad Exams-Entire Visit: Radiology Procedures Category Date Time Status CHEST 1 VIEW (PORTABLE) Stat Exams 12/15/23 18:40 Completed - Procedures and Test Procedures and Tests throughout Hospitalization: Therapy Orders & Screens 12/16/23 00:15 Respiratory Therapy Assessment DAILY Comment: Discharge Exam General Appearance: mild distress, alert Neurologic Exam: alert, oriented x 3, cooperative, normal mood/affect, nml cerebellar function, sensation nml, No motor deficits Eye Exam: PERRL, EOMI, eyes nml inspection Ears, Nose, Throat Exam: normal ENT inspection, pharynx normal, moist mucous membranes Neck Exam: normal inspection, non-tender, supple, full range of motion Respiratory Exam: normal breath sounds, lungs clear, No respiratory distress Cardiovascular Exam: regular rate/rhythm, normal heart sounds Gastrointestinal/Abdomen Exam: soft, No tenderness, No mass Pelvic Exam: deferred Extremity Exam: normal inspection, normal range of motion Telemedicine Encounter - Telemedicine Encounter Telemedicine Encounter: The entirety of this encounter was performed via Telemedicine" - Discharge Discharge Date: 12/16/23 Disposition: Home, Self-Care Condition: Stable Prescriptions: New Benzonatate 200 mg PO TID PRN #30 cap PRN Reason: Cough Guaifenesin/Codeine 5 ml [Robitussin AC Syrup Unit Dose Cup] 10 ml PO Q4H PRN PRN #240 ml PRN Reason: Cough Continue Atorvastatin Calcium [Lipitor 40Mg] 1 tab PO HS Lutein [Natural Lutein] 1 cap PO DAILY Discontinued Amoxicillin/Potassium Clav [Amox-Clav 875-125 mg Tablet] 1 tab PO BID Instructions: Acute bronchitis Follow up with: ISSAC EVERETT MD [Primary Care Provider] - 12/23/23 9:15 am ([place] )
[2023-12-16 11:41] VITALS: BP 146/79; RESP 17; TEMP 98.1; O2SAT 90
[2023-12-16] MEDS ORDERED: ZOCOR 20MG PO SCH (22:00)
== END 2023-12-16 11:55 | disposition home or self-care (01) ==
LOC: ED 18:01 → MED SURG 12-16 01:03
PROVIDERS: ADMIT Internal Medicine; ATTEND Internal Medicine
DX: J20.9 Acute bronchitis, unspecified (principal); E86.0 Dehydration; R05.9 Cough, unspecified; R53.1 Weakness; R19.7 Diarrhea, unspecified; E78.5 Hyperlipidemia, unspecified; Z85.3 Personal history of malignant neoplasm of breast; Z79.899 Other long term (current) drug therapy; Z20.828 Contact with and (suspected) exposure to other viral communicable diseases
CPT/HCPCS: 0241U; 36000; 36415; 71045; 80048; 80053; 81001; 83605; 85025; 85027; 87040; 93041; 94640; 94760; 99284; G0378; Q3014; J2930; A9270-GY